=== PATIENT | male | born 2000 | race Caucasian/White ===

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

== ENCOUNTER → 2019-12-06 | Outpatient (CLI) | payer OTHER ==
[~2019-12-06] MED LIST changes: +CLEO300C2 PO; +EXCETAB33 PO; +GABA-843 PO; -IBUP200C10 PO; +IBUP200C25 PO; +LAMI25TA PO
--- NOTE | 2019-12-07 08:47 | REP ---
REASON: Trauma. FINDINGS: The joint spaces are symmetric and relatively well maintained. There is no evidence of acute fracture or destructive osseous lesion. IMPRESSION: Negative. Electronically Signed by Fer Valdovinos DO 12/07/2019 05:18 P
== END ==
LOC: M WUC 15:38
PROVIDERS: ATTEND Physician Assistant
DX: S93.601A Unspecified sprain of right foot, initial encounter (principal); X58.XXXA Exposure to other specified factors, initial encounter; Y92.89 Other specified places as the place of occurrence of the external cause

== ENCOUNTER → 2020-01-20 | Outpatient (CLI) | payer OTHER ==
--- NOTE | 2020-02-24 10:10 | REP ---
RIGHT KNEE: 5-VIEWS COMPARISON: Latest prior full series dated 03/25/13. REASON FOR EXAMINATION: Patellar tendinitis and medial collateral ligamentous sprain. FINDINGS: The compartments are symmetric and well-maintained. There is no fracture, dislocation or subluxation. There is no destructive osseous lesion. IMPRESSION: Negative exam. If tendinitis and/or ligamentous abnormality is of clinical concern, then consider follow up with MRI. [facility]
== END ==
LOC: M WUC 16:27
PROVIDERS: ATTEND Physician Assistant
DX: M76.51 Patellar tendinitis, right knee (principal); S83.411A Sprain of medial collateral ligament of right knee, initial encounter; X58.XXXA Exposure to other specified factors, initial encounter; Y92.89 Other specified places as the place of occurrence of the external cause

== ENCOUNTER 2020-03-12 20:07 | Emergency (ER) | payer OTHER ==
[~2020-03-12] VITALS: Ht 182.9 cm; Wt 77.3 kg
[~2020-03-12 20:07] MED LIST changes: -CLEO300C2 PO; -EXCETAB33 PO; -GABA-843 PO; -LAMI25TA PO
[2020-03-12 20:08] VITALS: BP 143/74
[2020-03-12] MEDS ORDERED: LAMI25TA PO ×2 (20:11→20:13)
[2020-03-12] MEDS ORDERED: GABA-843 PO (20:11)
[2020-03-12] MEDS ORDERED: IBUP-1022 PO ×2 (20:13→20:29)
[2020-03-12] MEDS ORDERED: EXCETAB33 PO (20:13)
[2020-03-12] MEDS ORDERED: CLEO300C2 PO (20:29)
[2020-03-12] MEDS ORDERED: CLINDAMYCIN 150MG CAPSULE PO ONE (20:30)
[2020-03-12] MEDS ORDERED: traMADol 50 MG TAB (BULK 4 TAB ED) PO ONE (20:30)
== END 2020-03-12 20:56 | disposition home or self-care (01) ==
LOC: M ED 20:07
DX: K04.7 Periapical abscess without sinus (principal); R68.84 Jaw pain; K08.89 Other specified disorders of teeth and supporting structures; F17.200 Nicotine dependence, unspecified, uncomplicated; Z97.2 Presence of dental prosthetic device (complete) (partial); Z79.82 Long term (current) use of aspirin; Z88.0 Allergy status to penicillin

== ENCOUNTER → 2021-02-28 | Outpatient (REF) | payer OTHER ==
[~2021-02-28] MED LIST changes: +CLEO300C2 PO; +EXCETAB33 PO; +GABA-282 PO; +LAMI25TA PO
== END ==
LOC: M WUC 15:34
PROVIDERS: ATTEND Physician Assistant
DX: R05 Cough (principal)

== ENCOUNTER 2021-03-19 16:18 | Emergency (ER) | payer OTHER ==
[~2021-03-19] VITALS: Ht 182.9 cm; Wt 70.5 kg
--- OUTSIDE RECORDS SUMMARY | 2021-03-19 16:25 | CCD | Continuity of Care Document ---
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 Phone [facility] AUTM [phone] Adrian Crockett MD AUTM [phone] [place] [employer] [facility] [phone] Problems Description No Information Available Social History Type Date Description Comments Sex Unknown ETOH Use Never used alcohol Tobacco Use Start: Unknown Patient is a current smoker, smo kes every day Tobacco Use Start: Unknown Patient Currently Vapes Smoking Status Reviewed: 02/28/21 Patient Currently Vapes Allergies, Adverse Reactions, Alerts Active Allergies Criticality Reaction | Severity Comments Date Amoxicillin Unable to assess criticality throat swell ing 10/08/2016 Influenza F-Baqshmkyqj-8-2009-(H1N1)V-Li ke Virus Vaccine / Influenza B Virus Vaccine B/[place] Antigen / Influenza Virus Vaccine, Live Attenuated, I-Jmpuv-01 (H3N2) Strain Unable to assess criticality Difficulty breathing, Difficulty swallowing severe 02/28/2021 Inactive Allergies NKDA Unable to assess criticality 10/10/2012 Medications Active Medications SIG Qnty Indications Ordering Provide r Date Lamictal 100mg Tablets Unknown Benadryl Allergy Unknown 00 Immunizations Description No Information Available Vital Signs Date Vital Result Comment 02/28/2021 11:56am BP Systolic 135 mmHg BP Diastolic 74 mmHg Heart Rate 70 /min Respiratory Rate 18 /min O2 % BldC Oximetry 99 % Body Temperature 98.0 F Weight 165.00 lb Height 72 inches 6'0" BMI (Body Mass Index) 22.4 kg/m2 Pain Level 0 01/20/2020 3:40pm BP Systolic 116 mmHg BP Diastolic 84 mmHg Heart Rate 100 /min Respiratory Rate 12 /min O2 % BldC Oximetry 98 % Body Temperature 98.4 F Weight 160.00 lb Height 72 inches 6'0" BMI (Body Mass Index) 21.7 kg/m2 Pain Level 10 Results Description No Information Available Procedures Date Code Description Status 02/28/2021 02613 Office/Outpatient Established Mo d MDM 30-39 Min Completed Medical Devices Description No Information Available Encounters Type Date Location Provider Dx Diagnosis Office Visit 02/28/2021 9:45a Main Office Mu Millard, P.A. J0 6.9 Acute upper respiratory infection, unspecified R05 Cough Z20.828 Contact w and exposure to ot h viral communicable diseases Assessments Date Code Description Provider 02/28/2021 J06.9 Acute upper respiratory infectio n, unspecified Mu Millard, P.A. 02/28/2021 R05 Cough Mu sánchez, P.A. 02/28/2021 Z20.828 Contact with and (schneider spected) exposure to other viral communicable diseases Mu Millard, P.A. Plan of Treatment No Information Available Functional Status Description No Information Available Mental Status Description No Information Available Referrals Description No Information Available
--- OUTSIDE RECORDS SUMMARY | 2021-03-19 16:25 | CCD | Continuity of Care Document ---
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
--- OUTSIDE RECORDS SUMMARY | 2021-03-19 16:25 | CCD ---
Continuity of Care Document (CCD) Created on: 03/01/2021 Michelle Villar External Reference #: [id number] : 2000 Sex: Male Author Author Michelle MILLARD Organization Unknown Address [address] [place] [address] Phone [phone] Care Team Providers Care Customer Contact Specialist Name Role Phone [facility] AUTM [phone] Adrian Crockett MD AUTM [phone] [place] [employer] [facility] [phone] Problems Description No Information Available Social History [...] assess criticality throat swell ing 10/08/2016 Influenza Q-Amyjxhxrok-4-2009-(H1N1)V-Li ke Virus Vaccine / Influenza B Virus Vaccine B/[place] Antigen / Influenza Virus Vaccine, Live Attenuated, I-Lnfdp-94 (H3N2) Strain Unable to assess criticality Difficulty [...] Index) 21.7 kg/m2 Pain Level 10 Results Test Acquired Date Facility Test Result H/L Range Note Respiratory Panel 02/28/2021 [facility] [address] [address] [place] [address] [phone] Respiratory Panel This respiratory <SEE NOTE> 1 1 This respiratory PCR panel d etects Influenza A H1, H3 and 2008 H1 viruses, Influenza B virus, Resp iratory Syncytial Virus, Human metapneumovirus, Parainfluenza virus 1, 2, 3 and 4, Adenovirus, Rhinovirus/Enterovirus, Coronavirus HKU1, NL63, OC43, 229E and SARS-CoV-2 (COVID 19), Bordetella pertussis, Bordetella parapertussis, Mycoplasma pneumoniae and Chlamydia pneumoniae. NEGATIVE by MULTIPLEXED NUCLEIC ACID PCR SARS-CoV-2 (COVID 19) NEGATIVE - SARS-CoV-2 (COVID19) Procedures Date Code Description Status 02/28/2021 09656 Office/Outpatient Established Mo d MDM 30-39 Min Completed Medical Devices Description No Information Available Encounters Type Date Location Provider Dx Diagnosis Office Visit 02/28/2021 9:45a Main Office Manish Jones J0 6.9 Acute upper respiratory infection, unspecified R05 Cough Z20.828 Contact w and exposure to ot h viral communicable diseases Assessments Date Code Description Provider 02/28/2021 J06.9 Acute upper respiratory infectio n, unspecified Mu Millard, P.A. 02/28/2021 R05 Cough Mu sánchez, P.A. 02/28/2021 Z20.828 Contact with and (schneider spected) exposure to other viral communicable diseases Manish Jones Plan of Treatment No Information Available Functional Status Description No Information Available Mental Status Description No Information Available Referrals Description No Information Available
--- OUTSIDE RECORDS SUMMARY | 2021-03-19 16:26 | CCD ---
Author Author [facility] Organization [facility] Address Unknown Phone Unavailable Care Team Providers Care Er Manager Name Role Phone Estelle Torres Unavailable Unavailable Fish, B Nile ARTHUR Unavailable Unavailable Fish, B Nile ARTHUR Unavailable Unavailable Fish, B Nile ARTHUR Unavailable Unavailable Fish, B Nile ARTHUR Unavailable Unavailable Fish, B Nile ARTHUR Unavailable Unavailable Fish, B Nile ARTHUR Unavailable Unavailable Fish, B Nile ARTHUR Unavailable Unavailable Fish, B Nile ARTHUR Unavailable Unavailable Fish, B Nile ARTHUR Unavailable Unavailable Fish, B Nile ARTHUR Unavailable Unavailable Fish, B Nile ARTHUR Unavailable Unavailable Fish, B Nile ARTHUR Unavailable Unavailable Fish, B Nile ARTHUR Unavailable Unavailable Fish, B Nile ARTHUR Unavailable Unavailable Fish, B Nlie ARTHUR Unavailable Unavailable Fish, B Nile ARTHUR Unavailable Unavailable Fish, B Nile ARTHUR Unavailable Unavailable Fish, B Nile ARTHUR Unavailable Unavailable Fish, B Nile ARTHUR Unavailable Unavailable Fish, B Nile ARTHUR Unavailable Unavailable Fish, B Nile ARTHUR Unavailable Unavailable Fish, B Nile ARTHUR Unavailable Unavailable Fish, B Nile ARTHUR Unavailable Unavailable Fish, B Nile ARTHUR Unavailable Unavailable Fish, B Nile ARTHUR Unavailable Unavailable Fish, B Nile ARTHUR Unavailable Unavailable Fish, B Nile ARTHUR Unavailable Unavailable Fish, B Nile ARTHUR Unavailable Unavailable Fish, B Nile ARTHUR Unavailable Unavailable Fish, B Nile ARTHUR Unavailable Unavailable Fish, B Nile ARTHUR Unavailable Unavailable Fish, B Nile ARTHUR Unavailable Unavailable Fish, B Nile ARTHUR Unavailable Unavailable Fish, B Nile ARTHUR Unavailable Unavailable Fish, B Nile ARTHUR Unavailable Unavailable Fish, B Nile ARTHUR Unavailable Unavailable Fish, B Nile ARTHUR Unavailable Unavailable Fish, B Nile ARTHUR Unavailable Unavailable Fish, B Nile ARTHUR Unavailable Unavailable Fish, B Nile ARTHUR Unavailable Unavailable Fish, B Nile ARTHUR Unavailable Unavailable Fish, B Nile ARTHUR Unavailable Unavailable Fish, B Nile ARTHUR Unavailable Unavailable Fish, B Nile ARTHUR Unavailable Unavailable Fish, B Nile ARTHUR Unavailable Unavailable Fish, B Nile ARTHUR Unavailable Unavailable Fish, B Nile ARTHUR Unavailable Unavailable Fish, B Nile ARTHUR Unavailable Unavailable Fish, B Nile ARTHUR Unavailable Unavailable Fish, B Nile ARTHUR Unavailable Unavailable Fish, B Nile ARTHUR Unavailable Unavailable Fish, B Nile ARTHUR Unavailable Unavailable Fish, B Nile ARTHUR Unavailable Unavailable Fish, B Nile ARTHUR Unavailable Unavailable Fish, B Nile ARTHUR Unavailable Unavailable Fish, B Nile ARTHUR Unavailable Unavailable LETTIERE, A SHEMAR PA Unavailable Unavailable LETTIERE, A SHEMAR PA Unavailable Unavailable LETTIERE, A SHEMAR PA Unavailable Unavailable LETTIERE, A SHEMAR PA Unavailable Unavailable LETTIERE, A SHEMAR PA Unavailable Unavailable LETTIERE, A SHEMAR PA Unavailable Unavailable LETTIERE, A SHEMAR PA Unavailable Unavailable LETTIERE, A SHEMAR PA Unavailable Unavailable LETTIERE, A SHEMAR PA Unavailable Unavailable LETTIERE, A SHEMAR PA Unavailable Unavailable LETTIERE, A SHEMAR PA Unavailable Unavailable LETTIERE, A SHEMAR PA Unavailable Unavailable LETTIERE, A SHEMAR PA Unavailable Unavailable LETTIERE, A SHEMAR PA Unavailable Unavailable LETTIERE, A SHEMAR PA Unavailable Unavailable LETTIERE, A SHEMAR PA Unavailable Unavailable LETTIERE, A SHEMAR PA Unavailable Unavailable LETTIERE, A SHEMAR PA Unavailable Unavailable LETTIERE, A SHEMAR PA Unavailable Unavailable LETTIERE, A SHEMAR PA Unavailable Unavailable LETTIERE, A SHEMAR PA Unavailable Unavailable LETTIERE, A SHEMAR PA Unavailable Unavailable LETTIERE, A SHEMAR PA Unavailable Unavailable LETTIERE, A SHEMAR PA Unavailable Unavailable LETTIERE, A SHEMAR PA Unavailable Unavailable LETTIERE, A SHEMAR PA Unavailable Unavailable LETTIERE, A SHEMAR PA Unavailable Unavailable LETTIERE, A SHEMAR PA Unavailable Unavailable LETTIERE, A SHEMAR PA Unavailable Unavailable LETTIERE, A SHEMAR PA Unavailable Unavailable LETTIERE, A SHEMAR PA Unavailable Unavailable Luz Cobos MD Unavailable Unavailable Luz Cobos MD Unavailable Unavailable Luz Cobos MD Unavailable Unavailable Luz Cobos MD Unavailable Unavailable Luz Cobos MD Unavailable Unavailable Luz Cobos MD Unavailable Unavailable Luz Cobos MD Unavailable Unavailable Luz Cobos MD Unavailable Unavailable VENICE, ELSA PA Unavailable Unavailable VENICE, ELSA PA Unavailable Unavailable VENICE, ELSA PA Unavailable Unavailable VENICE, ELSA PA Unavailable Unavailable VENICE, ELSA PA Unavailable Unavailable VENICE, ELSA PA Unavailable Unavailable VENICE, ELSA PA Unavailable Unavailable VENICE, ELSA PA Unavailable Unavailable VENICE, ELSA PA Unavailable Unavailable VENICE, ELSA PA Unavailable Unavailable VENICE, ELSA PA Unavailable Unavailable VENICE, ELSA PA Unavailable Unavailable VENICE, ELSA PA Unavailable Unavailable VENICE, ELSA PA Unavailable Unavailable VENICE, ELSA PA Unavailable Unavailable VENICE, ELSA PA Unavailable Unavailable VENICE, ELSA PA Unavailable Unavailable VENICE, ELSA PA Unavailable Unavailable VENICE, ELSA PA Unavailable Unavailable VENICE, ELSA PA Unavailable Unavailable VENICE, ELSA PA Unavailable Unavailable VENICE, ELSA PA Unavailable Unavailable VENICE, ELSA PA Unavailable Unavailable VENICE, ELSA PA Unavailable Unavailable VENICE, ELSA PA Unavailable Unavailable VENICE, ELSA PA Unavailable Unavailable VENICE, ELSA PA Unavailable Unavailable VENICE, ELSA PA Unavailable Unavailable VENICE, ELSA PA Unavailable Unavailable VENICE, ESLA PA Unavailable Unavailable VENICE, ELSA PA Unavailable Unavailable VENICE, ELSA PA Unavailable Unavailable VENICE, ELSA PA Unavailable Unavailable VENICE, ELSA PA Unavailable Unavailable VENICE, ELSA PA Unavailable Unavailable VENICE, ELSA PA Unavailable Unavailable Brian F Estelle HEADING AND PRIMING TOOL SETTER-BC Unavailable Unavailable Brian F Estelle HEADING AND PRIMING TOOL SETTER-BC Unavailable Unavailable Brian F Estelle HEADING AND PRIMING TOOL SETTER-BC Unavailable Unavailable Torres F Estelle HEADING AND PRIMING TOOL SETTER-BC Unavailable Unavailable Brian F Estelle HEADING AND PRIMING TOOL SETTER-BC Unavailable Unavailable Torres F Estelle HEADING AND PRIMING TOOL SETTER-BC Unavailable Unavailable Torres, F Estelle HEADING AND PRIMING TOOL SETTER-BC Unavailable Unavailable Torres, F Estelle HEADING AND PRIMING TOOL SETTER-BC Unavailable Unavailable Torres F Estelle HEADING AND PRIMING TOOL SETTER-BC Unavailable Unavailable Torres F Estelle HEADING AND PRIMING TOOL SETTER-BC Unavailable Unavailable Brian F Estelle HEADING AND PRIMING TOOL SETTER-BC Unavailable Unavailable Torres F Estelle HEADING AND PRIMING TOOL SETTER-BC Unavailable Unavailable Torres F Estelle HEADING AND PRIMING TOOL SETTER-BC Unavailable Unavailable Luis Torres HEADING AND PRIMING TOOL SETTER-BC Unavailable Unavailable Luis Torres HEADING AND PRIMING TOOL SETTER-BC Unavailable Unavailable Luis Torres HEADING AND PRIMING TOOL SETTER-BC Unavailable Unavailable Luis Torres HEADING AND PRIMING TOOL SETTER-BC Unavailable Unavailable Luis Torres HEADING AND PRIMING TOOL SETTER-BC Unavailable Unavailable Luis Torres HEADING AND PRIMING TOOL SETTER-BC Unavailable Unavailable Luis Torres HEADING AND PRIMING TOOL SETTER-BC Unavailable Unavailable Luis Torres HEADING AND PRIMING TOOL SETTER-BC Unavailable Unavailable Luis Torres HEADING AND PRIMING TOOL SETTER-BC Unavailable Unavailable Luis Torres Estelle HEADING AND PRIMING TOOL SETTER-BC Unavailable Unavailable Scordo, M Roseann PA Unavailable Unavailable Scordo, M Roseann PA Unavailable Unavailable Scordo, M Roseann PA Unavailable Unavailable Scordo, M Roseann PA Unavailable Unavailable Scordo, M Roseann PA Unavailable Unavailable Scordo, M Roseann PA Unavailable Unavailable Scordo, M Roseann PA Unavailable Unavailable Scordo, M Roseann PA Unavailable Unavailable Scordo, M Roseann PA Unavailable Unavailable Scordo, M Roseann PA Unavailable Unavailable Scordo, M Roseann PA Unavailable Unavailable Scordo, M Roseann PA Unavailable Unavailable Scordo, M Roseann PA Unavailable Unavailable Scordo, M Roseann PA Unavailable Unavailable Scordo, M Roseann PA Unavailable Unavailable Scordo, M Roseann PA Unavailable Unavailable Scordo, M Roseann PA Unavailable Unavailable Scordo, M Roseann PA Unavailable Unavailable Scordo, M Roseann PA Unavailable Unavailable Scordo, M Roseann PA Unavailable Unavailable Scordo, M Roseann PA Unavailable Unavailable Scordo, M Roseann PA Unavailable Unavailable Scordo, M Roseann PA Unavailable Unavailable Scordo, M Roseann PA Unavailable Unavailable Scordo, M Roseann PA Unavailable Unavailable Scordo, M Roseann PA Unavailable Unavailable Scordo, M Roseann PA Unavailable Unavailable Scordo, M Roseann PA Unavailable Unavailable Scordo, M Roseann PA Unavailable Unavailable Scordo, M Roseann PA Unavailable Unavailable Scordo, M Roseann PA Unavailable Unavailable Scordo, M Roseann PA Unavailable Unavailable Scordo, M Roseann PA Unavailable Unavailable Scordo, M Roseann PA Unavailable Unavailable Scordo, M Roseann PA Unavailable Unavailable Scordo, M Roseann PA Unavailable Unavailable Scordo, M Roseann PA Unavailable Unavailable Scordo, M Roseann PA Unavailable Unavailable Scordo, M Roseann PA Unavailable Unavailable Scordo, M Roseann PA Unavailable Unavailable Scordo, M Roseann PA Unavailable Unavailable Scordo, M Roseann PA Unavailable Unavailable Scordo, M Roseann PA Unavailable Unavailable Scordo, M Roseann PA Unavailable Unavailable Scordo, M Roseann PA Unavailable Unavailable Scordo, M Roseann PA Unavailable Unavailable Scordo, M Roseann PA Unavailable Unavailable Re-disclosure Warning The records that you are about to access may contain information from federally-assisted alcohol or drug abuse programs. If such information is present, then the following federally mandated warning applies: This information has been disclosed to you from records protected by federal confidentiality rules (42 CFR part 2). The federal rules prohibit you from making any further disclosure of this information unless further disclosure is expressly permitted by the written consent of the person to whom it pertains or as otherwise permitted by 42 CFR part 2. A general authorization for the release of medical or other information is NOT sufficient for this purpose. The Federal rules restrict any use of the information to criminally investigate or prosecute any alcohol or drug abuse patient.The records that you are about to access may contain highly sensitive health information, the redisclosure of which is protected by Article 27-F of the [facility] Public Health law. If you continue you may have access to information: Regarding HIV / AIDS; Provided by facilities licensed or operated by the [facility] Office of Mental Health; or Provided by the [facility] Office for People With Developmental Disabilities. If such information is present, then the following [facility] mandated warning applies: This information has been disclosed to you from confidential records which are protected by state law. State law prohibits you from making any further disclosure of this information without the specific written consent of the person to whom it pertains, or as otherwise permitted by law. Any unauthorized further disclosure in violation of state law may result in a fine or intermediate sentence or both. A general authorization for the release of medical or other information is NOT sufficient authorization for further disc losure. Family History Family Member Name Family Member Gender Family Member Status Date o f Status Description Data Source(s) Unknown Unknown Problem [facility] ([facility]) Unknown Unknown Problem [facility] ([facility]) Unknown Unknown Problem [facility] ([facility]) Unknown Unknown Problem [facility] ([facility]) Unknown Unknown Problem [facility] ([facility]) Unknown Unknown Problem [facility] ([facility]) mgm Encounters Encounter Providers Location Date Indications Data Source(s ) Outpatient Attender: ELSA Bennett Raphael Booker ry 02/28/2021 09:45:00 AM EDT [facility] ([facility]) Darius Cobos MD: [address] [place] [address], Ph. Attender: Darius Cobos MD [facility] 12/18/2020 12:00:00 AM EDT [facility]) Darius Cobos MD: [address] [place] [address], Ph. Attender: Darius Cobos MD [facility] 11/13/2020 12:00:00 AM EDT [facility]) Darius Cobos MD: [address] [place] [address], Ph. Attender: Darius Cobos MD [facility] 11/13/2020 12:00:00 AM EDT [place] ([facility]) Darius Cobos MD: [address] [place] [address], Ph. Attender: Darius Cobos MD [facility] 05/22/2020 12:00:00 AM EST [place] ([facility]) Darius Cobos MD: [address] [place] [address], Ph. Attender: Darius Cobos MD [facility] 05/22/2020 12:00:00 AM EST [place] ([facility]) Darius Cobos MD: [address], [place] [address], Ph. Attender: Darius Cobos MD [facility] 05/22/2020 12:00:00 AM EST [place] ([facility]) Roseann Green PA-C: [address], [place] [address], Ph. Attender: [facility] 05/18/2020 12:00:00 AM EST [place] ([facility]) Roseann Green PA-C: [address], [place] [address], Ph. Attender: [facility] 05/18/2020 12:00:00 AM EST [place] ([facility]) Roseann Green PA-C: [address], [facility] [place] [address], Ph. Attender: Roseann [facility] 05/18/2020 12:00:00 AM EST [place] ([facility]) Roseann Green PA-C: [address], [facility] [place] [address], Ph. Attender: Roseann [facility] 05/18/2020 12:00:00 AM EST [place] ([facility]) Outpatient Attender: Nile Torres MD Physical Therapy 05/05/2020 0 2:15:00 PM EST [facility] ([facility] ) Darius Cobos MD: [address], [place] [address], Ph. Attender: Darius Cobos MD [facility] 05/04/2020 12:00:00 AM EST [place] ([facility]) Darius Cobos MD: [address], [facility] [place] [address], Ph. Attender: Darius Cobos MD [facility] 05/04/2020 12:00:00 AM EST [place] ([facility]) Darius Cobos MD: [address], [facility] [place] [address], Ph. Attender: Darius Cobos MD [facility] 05/04/2020 12:00:00 AM EST [place] ([facility]) Darius Cobos MD: [address], [facility] [place] [address], Ph. Attender: Darius Cobos MD [facility] 05/04/2020 12:00:00 AM EST [place] ([facility]) Darius Cobos MD: [address], [place] [address], Ph. Attender: Darius Cobos MD [facility] Medical 05/04/2020 12:00:00 AM EST [place] ([facility]) Darius Cobos MD: [address], [place] [address], Ph. Attender: Darius Cobos MD [facility] 04/17/2020 12:00:00 AM EST [place] ([facility]) Darius Cobos MD: [address], [facility] [place] [address], Ph. Attender: Darius Cobos MD [facility] Medical 04/17/2020 12:00:00 AM EST [place] ([facility]) Darius Cobos MD: [address], [place] [address], Ph. Attender: Darisu Cobos MD [facility] 04/17/2020 12:00:00 AM EST [place] ([facility]) Darius Cobos MD: [address], [place] [address], Ph. Attender: Darius Cobos MD [facility] 04/17/2020 12:00:00 AM EST [place] ([facility]) Darius Cobos MD: [address], [place] [address], Ph. Attender: Darius Cobos MD [facility] 04/17/2020 12:00:00 AM EST [place] ([facility]) Darius Cobos MD: [address], [place] [address], Ph. Attender: Darius Cobos MD [facility] 04/17/2020 12:00:00 AM EST [place] ([facility]) Outpatient Attender: Nile Torres MD Physical Therapy 03/24/2020 0 1:00:00 PM EDT [place] ([facility]) Outpatient Attender: Estelle GUTIERRES-PRESLEY FP 03/16/2020 10: 54:00 AM EDT [facility] Outpatient Attender: Estelle STEINBERG FP 03/16/2020 10: 54:00 AM EDT [facility] Outpatient Attender: Estelle STEINBERG FP 03/16/2020 10: 54:00 AM EDT [facility] Outpatient Attender: NENITA GUTIERRES FP 03/14/2020 11:33:07 AM EDT [facility] Outpatient Attender: Estelle GUTIERRES-BC FP 03/13/2020 03: 00:05 PM EDT [facility] Outpatient Attender: Estelle GUTIERRES-BC 03/06/2020 01: 09:01 PM EDT [facility] Outpatient Attender: Estelle OSBORNEBC 02/17/2020 08: 34:20 AM EDT [facility] Outpatient Attender: NENITA GUTIERRES 02/14/2020 07:59:00 AM EDT [facility] Outpatient Attender: Nile Torres MD Physical Therapy 02/11/2020 0 2:30:00 PM EDT [facility] ([facility]) OFFICE OUTPATIENT NEW 30 MINUTES Attender: Nile Torres MD Physic al Therapy 01/27/2020 12:45:00 PM EDT [facility] ([facility]) Outpatient Attender: SHEMAR arroyo 01/20/2020 03:50:00 PM EDT [facility] ([facility]) Medications Medication Brand Name Start Date Product Form Dose Route Admi nistrative Instructions Pharmacy Instructions Status Indications Reaction Description Data Source(s) 100 mg 12/19/2020 12:00:00 AM EDT tablet 30 TAKE ONE TABLET BY MOUTH AT BEDTIME TAKE ONE TABLET BY MOUTH AT BEDTIME SOLD: 01/20/2021 [facility] 100 mg 12/19/2020 12:00:00 AM EDT tablet 30 TAKE ONE TABLET BY MOUTH AT BEDTIME TAKE ONE TABLET BY MOUTH AT BEDTIME SOLD: 02/20/2021 [facility] 25 mg 12/19/2020 12:00:00 AM EDT tablet 60 TAKE ONE TABLET BY MOUTH TWICE A DAY TAKE ONE TABLET BY MOUTH TWICE A DAY SOLD: 12/19/2020 [facility] 100 mg 12/19/2020 12:00:00 AM EDT tablet 30 TAKE ONE TABLET BY MOUTH AT BEDTIME TAKE ONE TABLET BY MOUTH AT BEDTIME SOLD: 12/19/2020 [facility] 25 mg 11/16/2020 12:00:00 AM EDT tablet 60 TAKE ONE TABLET BY MOUTH TWICE A DAY TAKE ONE TABLET BY MOUTH TWICE A DAY SOLD: 11/20/2020 [facility] 25 mg 10/23/2020 12:00:00 AM EDT tablet 30 TAKE ONE TABLET BY MOUTH AT BEDTIME TAKE ONE TABLET BY MOUTH AT BEDTIME SOLD: 11/13/2020 [facility] 25 mg 10/23/2020 12:00:00 AM EDT tablet 30 TAKE ONE TABLET BY MOUTH AT BEDTIME TAKE ONE TABLET BY MOUTH AT BEDTIME SOLD: 12/19/2020 [facility] 100 mg 10/13/2020 12:00:00 AM EDT tablet 30 TAKE ONE TABLET BY MOUTH AT BEDTIME TAKE ONE TABLET BY MOUTH AT BEDTIME SOLD: 10/13/2020 [facility] 100 mg 10/13/2020 12:00:00 AM EDT tablet 30 TAKE ONE TABLET BY MOUTH AT BEDTIME TAKE ONE TABLET BY MOUTH AT BEDTIME SOLD: 11/14/2020 [facility] 25 mg 06/22/2020 12:00:00 AM EST tablet 30 TAKE ONE TABLET BY MOUTH AT BEDTIME TAKE ONE TABLET BY MOUTH AT BEDTIME SOLD: 06/26/2020 [facility] 25 mg 06/22/2020 12:00:00 AM EST tablet 30 TAKE ONE TABLET BY MOUTH AT BEDTIME TAKE ONE TABLET BY MOUTH AT BEDTIME SOLD: 09/01/2020 [facility] 25 mg 06/22/2020 12:00:00 AM EST tablet 30 TAKE ONE TABLET BY MOUTH AT BEDTIME TAKE ONE TABLET BY MOUTH AT BEDTIME SOLD: 10/13/2020 [facility] 25 mg 06/22/2020 12:00:00 AM EST tablet 30 TAKE ONE TABLET BY MOUTH AT BEDTIME TAKE ONE TABLET BY MOUTH AT BEDTIME SOLD: 08/01/2020 [facility] 25 mg 05/24/2020 12:00:00 AM EST tablet 30 TAKE ONE TABLET BY MOUTH DAILY AT BEDTIME TAKE ONE TABLET BY MOUTH DAILY AT BEDTIME SOLD: 05/25/2020 [facility] 100 mg 05/23/2020 12:00:00 AM EST tablet 30 TAKE ONE TABLET BY MOUTH DAILY AT BEDTIME TAKE ONE TABLET BY MOUTH DAILY AT BEDTIME SOLD: 08/01/2020 [facility] 100 mg 05/23/2020 12:00:00 AM EST tablet 30 TAKE ONE TABLET BY MOUTH DAILY AT BEDTIME TAKE ONE TABLET BY MOUTH DAILY AT BEDTIME SOLD: 06/26/2020 [facility] 100 mg 05/23/2020 12:00:00 AM EST tablet 30 TAKE ONE TABLET BY MOUTH DAILY AT BEDTIME TAKE ONE TABLET BY MOUTH DAILY AT BEDTIME SOLD: 09/01/2020 [facility] 100 mg 05/23/2020 12:00:00 AM EST tablet 30 TAKE ONE TABLET BY MOUTH DAILY AT BEDTIME TAKE ONE TABLET BY MOUTH DAILY AT BEDTIME SOLD: 05/23/2020 [facility] 0.5 mg (11)- 1 mg (42) 05/19/2020 12:00:00 AM EST tablets,do se pack 53 TAKE BY MOUTH DIRECTED TAKE BY MOUTH DIRECTED SOLD: 05/19/2020 [facility] 600 mg 04/21/2020 12:00:00 AM EST tablet 90 TAKE ONE TABLET BY MOUTH THREE TIMES A DAY TAKE ONE TABLET BY MOUTH THREE TIMES A DAY SOLD: 04/22/2020 [facility] 25 mg 04/13/2020 12:00:00 AM EST tablet 60 TAKE ONE TABLET BY MOUTH TWO TIMES A DAY TAKE ONE TABLET BY MOUTH TWO TIMES A DAY SOLD: 04/18/2020 [facility] Clindamycin 300 MG Oral Capsule CLINDAMYCIN HCL 03/13/2020 12:00 :00 AM EDT capsule 40 TAKE ONE CAPSULE BY MOUTH FOUR T IMES A DAY TAKE ONE CAPSULE BY MOUTH FOUR TIMES A DAY SOLD: 03/13/2020 [facility] 600 mg 03/13/2020 12:00:00 AM EDT tablet 30 TAKE ONE TABLET BY MOUTH EVERY 6 HOURS NEEDED FOR PAIN TAKE ONE TABLET BY MOUTH EVERY 6 HOURS A S NEEDED FOR PAIN SOLD: 03/13/2020 [facility] 25 mg 03/09/2020 12:00:00 AM EDT tablet 60 TAKE ONE TABLET BY MOUTH TWICE A DAY TAKE ONE TABLET BY MOUTH TWICE A DAY SOLD: 03/09/2020 [facility] 600 mg 02/17/2020 12:00:00 AM EDT tablet 60 TAKE ONE TABLET BY MOUTH TWICE A DAY TAKE ONE TABLET BY MOUTH TWICE A DAY SOLD: 03/24/2020 [facility] 600 mg 02/17/2020 12:00:00 AM EDT tablet 60 TAKE ONE TABLET BY MOUTH TWICE A DAY TAKE ONE TABLET BY MOUTH TWICE A DAY SOLD: 02/20/2020 [facility] Ibuprofen 800 MG Oral Tablet Ibuprofen 01/12/2020 12:00:00 AM EDT ORAL completed [facility] ([facility]) chlorhexidine gluconate 1.2 MG/ML Mouthwash Chlorhexidine Gl uconate 01/12/2020 12:00:00 AM EDT completed [facility] ([facility]) Clindamycin 300 MG Oral Capsule Clindamycin HCL 01/12/2020 12:00:00 A M EDT completed [facility] ([facility]) 25 mg 12/28/2019 12:00:00 AM EDT tablet 60 TAKE ONE TABLET BY MOUTH TWICE A DAY TAKE ONE TABLET BY MOUTH TWICE A DAY SOLD: 02/01/2020 [facility] Ketotifen 0.25 MG/ML Ophthalmic Solution ketotifen 0.0 25 % (0.035 %) eye drops ketotifen 0.025 % (0.035 %) eye drops completed ketotifen 0.25 MG/ML Ophthalmic Solution [place] ([facility]) [place] Carbonate 300 MG Oral Capsule li thium carbonate 300 mg capsule TAKE 1 CAPSULE BY MOUTH TWO TIMES A DAY lithium carbonate 300 mg capsule TAKE 1 CAPSULE BY MOUTH TWO TIMES A DAY completed lithium carbonate 300 MG Oral Capsule [place] ([facility]) Risperidone 2 MG Oral Tablet risperidone 2 mg tablet TAKE ONE TABLET BY MOUTH EVERY DAY risperidone 2 mg tablet TAKE ONE TABLET BY MOUTH EVERY DAY completed risperidone 2 MG Oral Tablet [place] ([facility]) Doxycycline Monohydrate 100 MG Oral Caps ule doxycycline monohydrate 100 mg capsule doxycycline monohydrate 100 mg capsule completed doxycycline monohydrate 100 MG Oral Capsule [facility] ([facility]) [place] Carbonate 300 MG Oral Capsule li thium carbonate 300 mg capsule TAKE 1 CAPSULE BY MOUTH TWO TIMES A DAY lithium carbonate 300 mg capsule TAKE 1 CAPSULE BY MOUTH TWO TIMES A DAY completed lithium carbonate 300 MG Oral Capsule [facility] ([facility]) Doxycycline Monohydrate 100 MG Oral Caps ule doxycycline monohydrate 100 mg capsule doxycycline monohydrate 100 mg capsule completed doxycycline monohydrate 100 MG Oral Capsule [facility] ([facility]) chlorhexidine gluconate 1.2 MG/ML Mouthw [place] chlorhexidine gluconate 0.12 % mouthwash chlorhexidine gluconate 0.12 % mouthwash completed chlorhexidine gluconate 1.2 MG/ML Mouthwash [facility] ([facility]) Doxycycline Monohydrate 100 MG Oral Caps ule doxycycline monohydrate 100 mg capsule doxycycline monohydrate 100 mg capsule completed doxycycline monohydrate 100 MG Oral Capsule [facility] ([facility]) chlorhexidine gluconate 1.2 MG/ML Mouthw [place] chlorhexidine gluconate 0.12 % mouthwash chlorhexidine gluconate 0.12 % mouthwash completed chlorhexidine gluconate 1.2 MG/ML Mouthwash [facility]) Risperidone 2 MG Oral Tablet risperidone 2 mg tablet TAKE ONE TABLET BY MOUTH EVERY DAY risperidone 2 mg tablet TAKE ONE TABLET BY MOUTH EVERY DAY completed risperidone 2 MG Oral Tablet [facility]) fluticasone propionate 50 mcg/actuation nasal spray,suspension [id number] completed fluticasone propionate 0.05 MG/ACTUAT Metered Dose Nasal [place] [facility]) chlorhexidine gluconate 1.2 MG/ML Mouthw [place] chlorhexidine gluconate 0.12 % mouthwash chlorhexidine gluconate 0.12 % mouthwash completed chlorhexidine gluconate 1.2 MG/ML Mouthwash [facility]) Risperidone 0.25 MG Oral Tablet risperid one 0.25 mg tablet TAKE 1 TABLET BY MOUTH DAILY WITH 2MG TABLET FOR TOTAL DAILY DOSE OF 2.25MG risperidone 0.25 mg tablet TAKE 1 TABLET BY MOUTH DAILY WITH 2MG TABLET FOR TOTAL DAILY DOSE OF 2.25MG completed risperidone 0.2 5 MG Oral Tablet [facility]) fluticasone propionate 50 mcg/actuation nasal spray,suspension [id number] completed fluticasone propionate 0.05 MG/ACTUAT Metered Dose Nasal [place] [facility]) Risperidone 2 MG Oral Tablet risperidone 2 mg tablet TAKE ONE TABLET BY MOUTH EVERY DAY risperidone 2 mg tablet TAKE ONE TABLET BY MOUTH EVERY DAY completed risperidone 2 MG Oral Tablet [facility]) Hydroxyzine Hydrochloride 25 MG Oral Tab let hydroxyzine HCl 25 mg tablet TAKE ONE TABLET BY MOUTH EVERY DAY hydroxyzine HCl 25 mg tablet TAKE ONE TA BLET BY MOUTH EVERY DAY completed hydroxyzine hydrochloride 25 MG Oral Tablet [facility]) quetiapine 25 MG Oral Tablet quetiapine 25 mg tablet quetiapine 25 mg tablet completed quetiapine 25 MG Oral Tablet [facility]) quetiapine 50 MG Oral Tablet quetiapine 50 mg tablet quetiapine 50 mg tablet completed quetiapine 50 MG Oral Tablet [facility]) Hydroxyzine Hydrochloride 25 MG Oral Tab let hydroxyzine HCl 25 mg tablet TAKE ONE TABLET BY MOUTH EVERY DAY hydroxyzine HCl 25 mg tablet TAKE ONE TA BLET BY MOUTH EVERY DAY completed hydroxyzine hydrochloride 25 MG Oral Tablet [facility] ([facility]) Risperidone 2 MG Oral Tablet risperidone 2 mg tablet TAKE ONE TABLET BY MOUTH EVERY DAY risperidone 2 mg tablet TAKE ONE TABLET BY MOUTH EVERY DAY completed risperidone 2 MG Oral Tablet [place] ([facility]) Clindamycin 300 MG Oral Capsule clindamycin HCl 300 mg capsule clindamycin HCl 300 mg capsule completed clindam ycin 300 MG Oral Capsule [place] ([facility]) Risperidone 2 MG Oral Tablet risperidone 2 mg tablet TAKE ONE TABLET BY MOUTH EVERY DAY risperidone 2 mg tablet TAKE ONE TABLET BY MOUTH EVERY DAY completed risperidone 2 MG Oral Tablet [place] ([facility]) Hydroxyzine Hydrochloride 25 MG Oral Tab let hydroxyzine HCl 25 mg tablet TAKE ONE TABLET BY MOUTH EVERY DAY hydroxyzine HCl 25 mg tablet TAKE ONE TA BLET BY MOUTH EVERY DAY completed hydroxyzine hydrochloride 25 MG Oral Tablet [place] ([facility]) Ketotifen 0.25 MG/ML Ophthalmic Solution ketotifen 0.0 25 % (0.035 %) eye drops ketotifen 0.025 % (0.035 %) eye drops completed ketotifen 0.25 MG/ML Ophthalmic Solution [place] ([facility]) cetirizine hydrochloride 10 MG Oral Tabl et cetirizine 10 mg tablet TAKE 1 TABLET BY MOUTH EVERY NIGHT cetirizine 10 mg tablet TAKE 1 TABLET BY MOUTH EVERY N IGHT completed cetirizine hyd rochloride 10 MG Oral Tablet [place] ([facility]) Ibuprofen 800 MG Oral Tablet ibuprofen 8 00 mg tablet TAKE ONE TABLET BY MOUTH THREE TIMES A DAY NEEDED FOR PAIN ibuprofen 800 mg tablet TAKE ONE TABLET BY MOUTH THREE TIMES A DAY NEEDED FOR PAIN completed ibuprofen 800 MG Oral Tablet [place] ([facility]) Risperidone 2 MG Oral Tablet risperidone 2 mg tablet TAKE ONE TABLET BY MOUTH EVERY DAY risperidone 2 mg tablet TAKE ONE TABLET BY MOUTH EVERY DAY completed risperidone 2 MG Oral Tablet [place] ([facility]) [place] Carbonate 300 MG Oral Capsule li thium carbonate 300 mg capsule TAKE 1 CAPSULE BY MOUTH TWO TIMES A DAY lithium carbonate 300 mg capsule TAKE 1 CAPSULE BY MOUTH TWO TIMES A DAY completed lithium carbonate 300 MG Oral Capsule [facility]) fluticasone propionate 50 mcg/actuation nasal spray,suspension [id number] completed fluticasone propionate 0.05 MG/ACTUAT Metered Dose Nasal [place] ([facility]) Risperidone 0.25 MG Oral Tablet risperid one 0.25 mg tablet TAKE 1 TABLET BY MOUTH DAILY WITH 2MG TABLET FOR TOTAL DAILY DOSE OF 2.25MG risperidone 0.25 mg tablet TAKE 1 TABLET BY MOUTH DAILY WITH 2MG TABLET FOR TOTAL DAILY DOSE OF 2.25MG completed risperidone 0.2 5 MG Oral Tablet [place] ([facility]) Hydroxyzine Hydrochloride 25 MG Oral Tab let hydroxyzine HCl 25 mg tablet TAKE ONE TABLET BY MOUTH EVERY DAY hydroxyzine HCl 25 mg tablet TAKE ONE TA BLET BY MOUTH EVERY DAY completed hydroxyzine hydrochloride 25 MG Oral Tablet [place] ([facility]) Prednisone 20 MG Oral Tablet prednisone 20 mg tablet TAKE TWO TABLETS BY MOUTH EVERY DAY ONCE DAILY FOR 4 DAYS prednisone 20 mg tablet TAKE TWO TABLETS BY MOUTH EVERY DAY ONCE DAILY FOR 4 DAYS completed prednisone 20 MG Oral Tablet [place] ([facility]) Ketotifen 0.25 MG/ML Ophthalmic Solution ketotifen 0.0 25 % (0.035 %) eye drops ketotifen 0.025 % (0.035 %) eye drops completed ketotifen 0.25 MG/ML Ophthalmic Solution [place] ([facility]) cetirizine hydrochloride 10 MG Oral Tabl et cetirizine 10 mg tablet TAKE 1 TABLET BY MOUTH EVERY NIGHT cetirizine 10 mg tablet TAKE 1 TABLET BY MOUTH EVERY N IGHT completed cetirizine hyd rochloride 10 MG Oral Tablet [place] ([facility]) [place] Carbonate 300 MG Oral Capsule li thium carbonate 300 mg capsule TAKE 1 CAPSULE BY MOUTH TWO TIMES A DAY lithium carbonate 300 mg capsule TAKE 1 CAPSULE BY MOUTH TWO TIMES A DAY completed lithium carbonate 300 MG Oral Capsule [place] ([facility]) Risperidone 0.25 MG Oral Tablet risperid one 0.25 mg tablet TAKE 1 TABLET BY MOUTH DAILY WITH 2MG TABLET FOR TOTAL DAILY DOSE OF 2.25MG risperidone 0.25 mg tablet TAKE 1 TABLET BY MOUTH DAILY WITH 2MG TABLET FOR TOTAL DAILY DOSE OF 2.25MG completed risperidone 0.2 5 MG Oral Tablet [place] ([facility]) Doxycycline Monohydrate 100 MG Oral Caps ule doxycycline monohydrate 100 mg capsule doxycycline monohydrate 100 mg capsule completed doxycycline monohydrate 100 MG Oral Capsule [place] ([facility]) Ibuprofen 800 MG Oral Tablet ibuprofen 8 00 mg tablet TAKE ONE TABLET BY MOUTH THREE TIMES A DAY NEEDED FOR PAIN ibuprofen 800 mg tablet TAKE ONE TABLET BY MOUTH THREE TIMES A DAY NEEDED FOR PAIN completed ibuprofen 800 MG Oral Tablet [place] ([facility]) Clindamycin 300 MG Oral Capsule clindamycin HCl 300 mg capsule clindamycin HCl 300 mg capsule completed clindam ycin 300 MG Oral Capsule [place] ([facility]) quetiapine 50 MG Oral Tablet quetiapine 50 mg tablet quetiapine 50 mg tablet completed quetiapine 50 MG Oral Tablet [place] ([facility]) Ketotifen 0.25 MG/ML Ophthalmic Solution ketotifen 0.0 25 % (0.035 %) eye drops ketotifen 0.025 % (0.035 %) eye drops completed ketotifen 0.25 MG/ML Ophthalmic Solution [place] ([facility]) cetirizine hydrochloride 10 MG Oral Tabl et cetirizine 10 mg tablet TAKE 1 TABLET BY MOUTH EVERY NIGHT cetirizine 10 mg tablet TAKE 1 TABLET BY MOUTH EVERY N IGHT completed cetirizine hyd rochloride 10 MG Oral Tablet [place] ([facility]) Prednisone 20 MG Oral Tablet prednisone 20 mg tablet TAKE TWO TABLETS BY MOUTH EVERY DAY ONCE DAILY FOR 4 DAYS prednisone 20 mg tablet TAKE TWO TABLETS BY MOUTH EVERY DAY ONCE DAILY FOR 4 DAYS completed prednisone 20 MG Oral Tablet [place] ([facility]) Ketotifen 0.25 MG/ML Ophthalmic Solution ketotifen 0.0 25 % (0.035 %) eye drops ketotifen 0.025 % (0.035 %) eye drops completed ketotifen 0.25 MG/ML Ophthalmic Solution [place] ([facility]) Risperidone 0.25 MG Oral Tablet risperid one 0.25 mg tablet TAKE 1 TABLET BY MOUTH DAILY WITH 2MG TABLET FOR TOTAL DAILY DOSE OF 2.25MG risperidone 0.25 mg tablet TAKE 1 TABLET BY MOUTH DAILY WITH 2MG TABLET FOR TOTAL DAILY DOSE OF 2.25MG completed risperidone 0.2 5 MG Oral Tablet [facility]) Ibuprofen 800 MG Oral Tablet ibuprofen 8 00 mg tablet TAKE ONE TABLET BY MOUTH THREE TIMES A DAY NEEDED FOR PAIN ibuprofen 800 mg tablet TAKE ONE TABLET BY MOUTH THREE TIMES A DAY NEEDED FOR PAIN completed ibuprofen 800 MG Oral Tablet [facility] ([facility]) Ibuprofen 800 MG Oral Tablet ibuprofen 8 00 mg tablet TAKE ONE TABLET BY MOUTH THREE TIMES A DAY NEEDED FOR PAIN ibuprofen 800 mg tablet TAKE ONE TABLET BY MOUTH THREE TIMES A DAY NEEDED FOR PAIN completed ibuprofen 800 MG Oral Tablet [facility] ([facility]) Risperidone 0.25 MG Oral Tablet risperid one 0.25 mg tablet TAKE 1 TABLET BY MOUTH DAILY WITH 2MG TABLET FOR TOTAL DAILY DOSE OF 2.25MG risperidone 0.25 mg tablet TAKE 1 TABLET BY MOUTH DAILY WITH 2MG TABLET FOR TOTAL DAILY DOSE OF 2.25MG completed risperidone 0.2 5 MG Oral Tablet [place] ([facility]) quetiapine 50 MG Oral Tablet quetiapine 50 mg tablet quetiapine 50 mg tablet completed quetiapine 50 MG Oral Tablet [place] ([facility]) Prednisone 20 MG Oral Tablet prednisone 20 mg tablet TAKE TWO TABLETS BY MOUTH EVERY DAY ONCE DAILY FOR 4 DAYS prednisone 20 mg tablet TAKE TWO TABLETS BY MOUTH EVERY DAY ONCE DAILY FOR 4 DAYS completed prednisone 20 MG Oral Tablet [facility] ([facility]) Prednisone 20 MG Oral Tablet prednisone 20 mg tablet TAKE TWO TABLETS BY MOUTH EVERY DAY ONCE DAILY FOR 4 DAYS prednisone 20 mg tablet TAKE TWO TABLETS BY MOUTH EVERY DAY ONCE DAILY FOR 4 DAYS completed prednisone 20 MG Oral Tablet [facility] ([facility]) Doxycycline Monohydrate 100 MG Oral Caps ule doxycycline monohydrate 100 mg capsule doxycycline monohydrate 100 mg capsule completed doxycycline monohydrate 100 MG Oral Capsule [place] ([facility]) Ibuprofen 800 MG Oral Tablet ibuprofen 8 00 mg tablet TAKE ONE TABLET BY MOUTH THREE TIMES A DAY NEEDED FOR PAIN ibuprofen 800 mg tablet TAKE ONE TABLET BY MOUTH THREE TIMES A DAY NEEDED FOR PAIN completed ibuprofen 800 MG Oral Tablet [facility] ([facility]) chlorhexidine gluconate 1.2 MG/ML Mouthw [place] chlorhexidine gluconate 0.12 % mouthwash chlorhexidine gluconate 0.12 % mouthwash completed chlorhexidine gluconate 1.2 MG/ML Mouthwash [place] ([facility]) fluticasone propionate 50 mcg/actuation nasal spray,suspension [id number] completed fluticasone propionate 0.05 MG/ACTUAT Metered Dose Nasal [place] ([facility]) Doxycycline Monohydrate 100 MG Oral Caps ule doxycycline monohydrate 100 mg capsule doxycycline monohydrate 100 mg capsule completed doxycycline monohydrate 100 MG Oral Capsule [place] ([facility]) Ibuprofen 800 MG Oral Tablet ibuprofen 8 00 mg tablet TAKE ONE TABLET BY MOUTH THREE TIMES A DAY NEEDED FOR PAIN ibuprofen 800 mg tablet TAKE ONE TABLET BY MOUTH THREE TIMES A DAY NEEDED FOR PAIN completed ibuprofen 800 MG Oral Tablet [place] ([facility]) cetirizine hydrochloride 10 MG Oral Tabl et cetirizine 10 mg tablet TAKE 1 TABLET BY MOUTH EVERY NIGHT cetirizine 10 mg tablet TAKE 1 TABLET BY MOUTH EVERY N IGHT completed cetirizine hyd rochloride 10 MG Oral Tablet [place] ([facility]) Ketotifen 0.25 MG/ML Ophthalmic Solution ketotifen 0.0 25 % (0.035 %) eye drops ketotifen 0.025 % (0.035 %) eye drops completed ketotifen 0.25 MG/ML Ophthalmic Solution [place] ([facility]) fluticasone propionate 50 mcg/actuation nasal spray,suspension [id number] completed fluticasone propionate 0.05 MG/ACTUAT Metered Dose Nasal [place] ([facility]) cetirizine hydrochloride 10 MG Oral Tabl et cetirizine 10 mg tablet TAKE 1 TABLET BY MOUTH EVERY NIGHT cetirizine 10 mg tablet TAKE 1 TABLET BY MOUTH EVERY N IGHT completed cetirizine hyd rochloride 10 MG Oral Tablet [place] ([facility]) fluticasone propionate 50 mcg/actuation nasal spray,suspension [id number] completed fluticasone propionate 0.05 MG/ACTUAT Metered Dose Nasal [place] ([facility]) chlorhexidine gluconate 1.2 MG/ML Mouthw [place] chlorhexidine gluconate 0.12 % mouthwash chlorhexidine gluconate 0.12 % mouthwash completed chlorhexidine gluconate 1.2 MG/ML Mouthwash [place] ([facility]) Hydroxyzine Hydrochloride 25 MG Oral Tab let hydroxyzine HCl 25 mg tablet TAKE ONE TABLET BY MOUTH EVERY DAY hydroxyzine HCl 25 mg tablet TAKE ONE TA BLET BY MOUTH EVERY DAY completed hydroxyzine hydrochloride 25 MG Oral Tablet [place] ([facility]) cetirizine hydrochloride 10 MG Oral Tabl et cetirizine 10 mg tablet TAKE 1 TABLET BY MOUTH EVERY NIGHT cetirizine 10 mg tablet TAKE 1 TABLET BY MOUTH EVERY N IGHT completed cetirizine hyd rochloride 10 MG Oral Tablet [facility] ([facility]) Hydroxyzine Hydrochloride 25 MG Oral Tab let hydroxyzine HCl 25 mg tablet TAKE ONE TABLET BY MOUTH EVERY DAY hydroxyzine HCl 25 mg tablet TAKE ONE TA BLET BY MOUTH EVERY DAY completed hydroxyzine hydrochloride 25 MG Oral Tablet [place] ([facility]) Risperidone 0.25 MG Oral Tablet risperid one 0.25 mg tablet TAKE 1 TABLET BY MOUTH DAILY WITH 2MG TABLET FOR TOTAL DAILY DOSE OF 2.25MG risperidone 0.25 mg tablet TAKE 1 TABLET BY MOUTH DAILY WITH 2MG TABLET FOR TOTAL DAILY DOSE OF 2.25MG completed risperidone 0.2 5 MG Oral Tablet [place] ([facility]) quetiapine 50 MG Oral Tablet quetiapine 50 mg tablet quetiapine 50 mg tablet completed quetiapine 50 MG Oral Tablet [place] ([facility]) Prednisone 20 MG Oral Tablet prednisone 20 mg tablet TAKE TWO TABLETS BY MOUTH EVERY DAY ONCE DAILY FOR 4 DAYS prednisone 20 mg tablet TAKE TWO TABLETS BY MOUTH EVERY DAY ONCE DAILY FOR 4 DAYS completed prednisone 20 MG Oral Tablet [place] ([facility]) chlorhexidine gluconate 1.2 MG/ML Mouthw [place] chlorhexidine gluconate 0.12 % mouthwash chlorhexidine gluconate 0.12 % mouthwash completed chlorhexidine gluconate 1.2 MG/ML Mouthwash [place] ([facility]) [place] Carbonate 300 MG Oral Capsule li thium carbonate 300 mg capsule TAKE 1 CAPSULE BY MOUTH TWO TIMES A DAY lithium carbonate 300 mg capsule TAKE 1 CAPSULE BY MOUTH TWO TIMES A DAY completed lithium carbonate 300 MG Oral Capsule [place] ([facility]) [place] Carbonate 300 MG Oral Capsule li thium carbonate 300 mg capsule TAKE 1 CAPSULE BY MOUTH TWO TIMES A DAY lithium carbonate 300 mg capsule TAKE 1 CAPSULE BY MOUTH TWO TIMES A DAY completed lithium carbonate 300 MG Oral Capsule [place] ([facility]) quetiapine 50 MG Oral Tablet quetiapine 50 mg tablet quetiapine 50 mg tablet completed quetiapine 50 MG Oral Tablet [place] ([facility]) Prednisone 20 MG Oral Tablet prednisone 20 mg tablet TAKE TWO TABLETS BY MOUTH EVERY DAY ONCE DAILY FOR 4 DAYS prednisone 20 mg tablet TAKE TWO TABLETS BY MOUTH EVERY DAY ONCE DAILY FOR 4 DAYS completed prednisone 20 MG Oral Tablet [place] ([facility]) quetiapine 50 MG Oral Tablet quetiapine 50 mg tablet quetiapine 50 mg tablet completed quetiapine 50 MG Oral Tablet [place] ([facility]) Insurance Providers Payer name Policy type / Coverage type Policy ID Covered republican ID Covered republican's relationship to spivey Policy Spivey Plan Information [employer] Commercial [id number] Self [id number] [employer] Commercial [id number] Self [id number] [employer] Commercial [id number] Self BS/W/Id#Prefix/W ALL #'S Commercial [id number] Self [employer] Commercial [id number] Self [id number] [place] ([place]) Commercial [id number] Self [id number] Medicaid Dental S [id number] S [id number] [facility] Health Maintenance Organization (O) [id number] Self [id number] [facility] Health Maintenance Organization (O) [id number] Self [id number] [facility] Health Maintenance Organization (O) [id number] Self [id number] [facility] Health Maintenance Organization (O) [id number] Self Medicaid Dental O [id number] S [id number] Managed Care - Community Plan [facility] P [id number] S [id number] [place]/Community([facility]) Commercial [id number] Self [id number] Medicaid S [id number] S [id number] Managed Care - [facility] Community Plan P [id number] S [id number] Managed Care [facility] P [id number] S [id number] Medicaid S [id number] S [id number] Managed Care - [facility] Community Plan P [id number] S [id number] UN COMMUNITY PLAN MCDO [id number] SP [id number] [facility] O [id number] S [id number] Medicaid S [id number] S [id number] Managed Care - [facility] Community Plan P [id number] S [id number] Self Pay P [id number] S [id number] Managed Care [facility] P [id number] S [id number] Self Pay P UNAVAILABLE S UNAVAILA BLE Managed Care - Community Plan [facility] P [id number] S [id number] MEDICAID [id number] MEDICAID [id number] SP [id number] MEDICAID M [id number] S [id number] [facility]) Medicaid [id number] Self [id number] SELF PAY ONLY [id number] SP [id number] Managed Care [facility] S [id number] S [id number] BLUE [employer] [place] PLAN [id number] SP [id number] [employer] BCBS P UNAVAILABLE [id number] S UNAV AILABLE HMO BLUE [id number] SP [id number] UN COMMUNITY PLAN MCDO [id number] SP [id number] Problems, Conditions, and Diagnoses Code Display Name Description Problem Type Effective Dates Data Source(s) [id number] Disorder of upper respiratory system Dis order of Upper Respiratory System Problem 02/24/2019 12:00:00 AM EDT - 05/18/2020 12:00:00 AM EST [facility] ([facility]) [id number] Disorder of upper respiratory system Dis order of Upper Respiratory System Problem 02/24/2019 12:00:00 AM EDT - 05/18/2020 12:00:00 AM EST [place] ([facility]) [id number] Disorder of upper respiratory system Dis order of Upper Respiratory System Problem 02/24/2019 12:00:00 AM EDT - 05/18/2020 12:00:00 AM EST [place] ([facility]) [id number] Disorder of upper respiratory system Dis order of Upper Respiratory System Problem 02/24/2019 12:00:00 AM EDT - 05/18/2020 12:00:00 AM EST [place] ([facility]) [id number] Chest pain Chest Pain Problem 11/13/2018 12:0 0:00 AM EDT - 05/18/2020 12:00:00 AM EST [facility] ([facility]) [id number] Chest pain Chest Pain Problem 11/13/2018 12:0 0:00 AM EDT - 05/18/2020 12:00:00 AM EST [facility] ([facility]) [id number] Chest pain Chest Pain Problem 11/13/2018 12:0 0:00 AM EDT - 05/18/2020 12:00:00 AM EST [place] ([facility]) [id number] Chest pain Chest Pain Problem 11/13/2018 12:0 0:00 AM EDT - 05/18/2020 12:00:00 AM EST [facility] ([facility]) [id number] Dental caries on smooth surface penetrat ing into pulp Dental Caries on Smooth Surface Penetrating into Pulp Problem 016 12:00:00 AM EST - 05/18/2020 12:00:00 AM EST [facility] ([facility]) [id number] Dental caries on smooth surface penetrat ing into pulp Dental Caries on Smooth Surface Penetrating into Pulp Problem 016 12:00:00 AM EST - 05/18/2020 12:00:00 AM EST [place] ([facility]) [id number] Dental caries on smooth surface penetrat ing into pulp Dental Caries on Smooth Surface Penetrating into Pulp Problem 016 12:00:00 AM EST - 05/18/2020 12:00:00 AM EST [place] ([facility]) [id number] Dental caries on smooth surface penetrat ing into pulp Dental Caries on Smooth Surface Penetrating into Pulp Problem 016 12:00:00 AM EST - 05/18/2020 12:00:00 AM EST [place] ([facility]) Surgeries/Procedures Procedure Description Date Indications Data Source(s) OFFICE OUTPATIENT VISIT 25 MINUTES 02/28/2021 12:00:00 AM EDT [facility] ([facility]) MRI Lower Extremity Any Joint 02/09/2020 12:00:00 AM E DT [facility] ([facility] ) Therapeutic, Prophylactic Or Diagnostic Injection Subq/Im 01/20/2020 12:00:00 AM EDT [facility] ([facility]) Results ID Date Data Source [id number] 02/28/2021 12:31:00 PM EDT [facility] Name Value Range Interpretation Code Description Data Thuy rce(s) Supporting Document(s) SARS-CoV-2 (COVID 19) NEGATIVE - SARS-CoV-2 (COVID19) [facility] This lab was ordered by [facility] a nd reported by [facility]. ID Date Data Source [id number] 02/28/2021 12:31:00 PM EDT [facility] ([facility]) Name Value Range Interpretation Code Description Data Thuy rce(s) Supporting Document(s) Respiratory Panel Laboratory test result [facility] ([facility]) This respiratory PCR panel detects Influ pham A H1, H3 and 2009 H1 viruses, Influenza B virus, Resp iratory Syncytial Virus, Human metapneumovirus, Parainfluenza virus 1, 2, 3 and 4, Adenovirus, Rhinovirus/Enterovirus, Coronavirus HKU1, NL63, OC43, 229E and SARS-CoV-2 (COVID 19), Bordetella pertussis, Bordetella parapertussis, Mycoplasma pneumoniae and Chlamydia pneumoniae. NEGATIVE by MULTIPLEXED NUCLEIC ACID PCR SARS-CoV-2 (COVID 19) NEGATIVE - SARS-CoV-2 (COVID19) ID Date Data Source [id number] 02/28/2021 12:00:00 AM EDT [facility] Name Value Range Interpretation Code Description Data Thuy rce(s) Supporting Document(s) SARS-CoV2 Rapid Antigen Negative [facility] This lab was reported by [facility]. ID Date Data Source [id number] 06/20/2020 12:00:00 AM EST [facility] Name Value Range Interpretation Code Description Data Thuy rce(s) Supporting Document(s) SARS coronavirus 2 Ag Negative [facility] This lab was ordered by [facility] and reported by [facility]. ID Date Data Source [id number] 03/14/2020 04:52:08 PM EDT [facility] Current Problems: Bipolar disorder (ICD- 296.80) (KKG93-S25.9)Acute upper respiratory infection, unspecified (YUR09-C78.9)Bipolar disorder, unspecified (YEB44-L21.9)Chest pain, unspecified (NCJ66-N44.9)DENTAL CARIES EXTENDING INTO PULP (ICD-521.03) (JLT63-N46.63)ANXIETY DISORDER NOS (ICD-300.00) (ICD10- F41.9)ANXIETY DISORDER NOS (ICD-300.00) (MRW38-K62.9)ADJUSTMENT DISORDER WITH ANXIETY (ICD-309.24) (ACK37-W55.22)Current Medications: LAMICTAL 25 MG ORAL TABLET (LAMOTRIGINE) One BID; Route: ORALNEURONTIN 600 MG ORAL TABLET (GABAPENTIN) One BID; Route: ORALCurrent Allergies: PENICILLIN (Critical) Dental Chart: Procedures:Type - CDT Code - Description B - (D0600) Panoramic film (Performed by Elisa Gatica DMD) B - (D0140) Limited oral evaluation - problem focused on Tooth # 3 (Performed by Elisa Gatica DMD) Existing:Type - CDT Code - Description[E] Missing - [place] Only/Root Tip On #29 Surface O Region X, #3 Surface O Region X[E] Root Canal On #10 Region A, #11 Region A, #4 Region A, #6 Region A, #7 Region A, #8 Region A, #9 Region A[E] Missing - [place] and Root On #1 Surface O Region XR, #14 Surface O Region XR, #16 Surface O Region XR, #17 Surface O Region XR, #18 Surface O Region XR, #32 Surface O Region XR[E] [place] - 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 On #10, #11, #6, #7, #8, #9 Chart Alert:[employer] [facility] [employer] patientProphy 1 per 6 month periodchild through age 12adult 13+next availExam 1 per 6 month periodnext availFl2 1 per 6 month periodthrough age 20next availBwx 4 films per 6 month periodnext availPanorex 1 every 3 yearsnext avail Sealants every 5 yearsage 5-15 Chart Notes:mona (Mar 16 2020 10:53AM): Additional PPE requirements due to COVID-19 in the dental setting, N95, surgical mask, hair covering, gown and shield.S: CC:"I went to [facility] nd had a lot of work done, but I still have a lot of bad teeth and infection in my uth. It has been about a year since I seen [facility]. I went to [facility] yesterday for tooth pain and they gave me Trama dol and Clindamycin and they scheduled me to come and see you all for an nemergency visit."O: RMHx (-) per pt. is allergic to Penicillin and takes Gabepentin. HPI: week PL: 10.BP: 123/88. Panorex taken. Multiple areas of chronic infection present in the mouth. Multiple areas of decay and broken teeth. A: DDS recommends to be referred out for established dental home and treatment. Placed referral for multiservice tx. 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 (Pt asked for [facility])Informed Pt about new pain management policy of the clinic regarding about narcotic,told pt to alternate Ibuprophen 600- 800mg and tylenol 500mg every 4 to 6 hrs for pain when needed. Assisted By:Elisa Maki DMD by mona (03/16/2020 10:53 AM): Tooth Notes and Watches: Assessment & Plan Medications:LAMICTAL 25 MG ORAL TABLETNEURONTIN 600 MG ORAL TABLETAllergies:PENICILLIN (Critical)Orders:Multi-Service Referral [CPT-59129] Name Value Range Interpretation Code Description Data Tuhy rce(s) Supporting Document(s) Procedure Social History No Information Vital Signs ID Date Data Source UNK Name Value Range Interpretation Code Description Data Source(s) Systolic blood pressure 135 mm[Hg] 135 mm[Hg] M EDENT ([facility], [facility]) Body temperature 98.0 [degF] 98.0 [degF] MEDENT ([facility], [facility]) Body weight 165.00 [lb_av] 165.00 [lb_av] MEDEN T ([facility], [facility]) Body height 72 [in_i] 72 [in_i] MEDENT ([facility], [facility]) 6'0" Body mass index (BMI) [Ratio] 22.4 kg/m2 22.4 k g/m2 MEDENT ([facility], [facility]) Heart rate 70 /min 70 /min MEDENT ([facility], [facility]) Diastolic blood pressure 74 mm[Hg] 74 mm[Hg] MEDENT ([facility], [facility]) Respiratory rate 18 /min 18 /min MEDENT ( [facility], [facility]) Oxygen saturation in Arterial blood by Pulse oximetry 99 % 99 % [facility] ([facility], [facility]) Body height 72 [in_i] 72 [in_i] PABLO ([facility]) Body mass index (BMI) [Ratio] 22.4 kg/m2 22.4 k g/m2 PABLO ([facility]) Body weight 2643.2 [oz_av] 2643.2 [oz_av] ATHEN A ([facility]) Body height 72 [in_i] 72 [in_i] PABLO ([facility]) Body mass index (BMI) [Ratio] 22.7 kg/m2 22.7 k g/m2 PABLO ([facility]) Body weight 2681.6 [oz_av] 2681.6 [oz_av] ATHEN A ([facility]) Body height 72 [in_i] 72 [in_i] PABLO ([facility]) Body mass index (BMI) [Ratio] 22.7 kg/m2 22.7 k g/m2 PABLO ([facility]) Body weight 2681.6 [oz_av] 2681.6 [oz_av] ATHEN A ([facility]) Body height 72 [in_i] 72 [in_i] PABLO ([facility]) Body mass index (BMI) [Ratio] 21.6 kg/m2 21.6 k g/m2 PABLO ([facility]) Body weight 2553.6 [oz_av] 2553.6 [oz_av] ATHEN A ([facility]) Body height 72 [in_i] 72 [in_i] PABLO ([facility]) Body mass index (BMI) [Ratio] 21.6 kg/m2 21.6 k g/m2 PABLO ([facility]) Body weight 2553.6 [oz_av] 2553.6 [oz_av] ATHEN A ([facility]) Body height 72 [in_i] 72 [in_i] PABLO ([facility]) Body mass index (BMI) [Ratio] 21.6 kg/m2 21.6 k g/m2 PABLO ([facility]) Body weight 2553.6 [oz_av] 2553.6 [oz_av] ATHEN A ([facility]) Body height 72 [in_i] 72 [in_i] PABLO ([facility]) Body height 72 [in_i] 72 [in_i] PABLO ([facility]) Body height 72 [in_i] 72 [in_i] PABLO ([facility]) Body height 72 [in_i] 72 [in_i] PABLO ([facility]) Body temperature 97.7 [degF] 97.7 [degF] MEDENT ([facility]) Body height 72 [in_i] 72 [in_i] PABLO ([facility]) Body mass index (BMI) [Ratio] 21.6 kg/m2 21.6 k g/m2 PABLO ([facility]) Body weight 2553.6 [oz_av] 2553.6 [oz_av] ATHEN A ([facility]) Body weight 2553.6 [oz_av] 2553.6 [oz_av] ATHEN A ([facility]) Body height 72 [in_i] 72 [in_i] PABLO ([facility]) Body mass index (BMI) [Ratio] 21.6 kg/m2 21.6 k g/m2 PABLO ([facility]) Body height 72 [in_i] 72 [in_i] PABLO ([facility]) Body mass index (BMI) [Ratio] 21.6 kg/m2 21.6 k g/m2 PABLO ([facility]) Body weight 2553.6 [oz_av] 2553.6 [oz_av] ATHEN A ([facility]) Body height 72 [in_i] 72 [in_i] PABLO ([facility]) Body mass index (BMI) [Ratio] 21.6 kg/m2 21.6 k g/m2 P[facility]LO ([facility]) Body weight 2553.6 [oz_av] 2553.6 [oz_av] ATHEN A ([facility]) Body height 72 [in_i] 72 [in_i] PABLO ([facility]) Body mass index (BMI) [Ratio] 21.6 kg/m2 21.6 k g/m2 PABLO ([facility]) Body weight 2553.6 [oz_av] 2553.6 [oz_av] ATHEN A ([facility]) Body height 72 [in_i] 72 [in_i] PABLO ([facility]) Body mass index (BMI) [Ratio] 21.8 kg/m2 21.8 k g/m2 PABLO ([facility]) Body weight 2566.4 [oz_av] 2566.4 [oz_av] ATHEN A ([facility]) Body height 72 [in_i] 72 [in_i] PABLO ([facility]) Body mass index (BMI) [Ratio] 21.8 kg/m2 21.8 k g/m2 PABLO ([facility]) Body weight 2566.4 [oz_av] 2566.4 [oz_av] ATHRANDY [place] ([facility]) Body height 72 [in_i] 72 [in_i] PABLO ([facility]) Body mass index (BMI) [Ratio] 21.8 kg/m2 21.8 k g/m2 PAB[facility] ([facility]) Body weight 2566.4 [oz_av] 2566.4 [oz_av] ATHRANDY [place] ([facility]) Body height 72 [in_i] 72 [in_i] PABLO ([facility]) Body mass index (BMI) [Ratio] 21.8 kg/m2 21.8 k g/m2 PABLO ([facility]) Body weight 2566.4 [oz_av] 2566.4 [oz_av] ATHRANDY [place] ([facility]) Body height 72 [in_i] 72 [in_i] PABLO ([facility]) Body mass index (BMI) [Ratio] 21.8 kg/m2 21.8 k g/m2 PABLO ([facility]) Body weight 2566.4 [oz_av] 2566.4 [oz_av] ATHRANDY [place] ([facility]) Body height 72 [in_i] 72 [in_i] PABLO ([facility]) Body mass index (BMI) [Ratio] 21.8 kg/m2 21.8 k g/m2 PABLO ([facility]) Body weight 2566.4 [oz_av] 2566.4 [oz_av] ATHRANDY [place] ([facility]) Body temperature 98.4 [degF] 98.4 [degF] MEDENT ([facility], [facility]) Systolic blood pressure 116 mm[Hg] 116 mm[Hg] M EDENT ([facility] Diastolic blood pressure 84 mm[Hg] 84 mm[Hg] MEDENT ([facility] Heart rate 100 /min 100 /min MEDENT ([facility] Respiratory rate 12 /min 12 /min MEDENT ( [facility]) Body weight 160.00 [lb_av] 160.00 [lb_av] MEDEN T ([facility]) Body height 72 [in_i] 72 [in_i] MEDENT ([facility]) 6'0" Oxygen saturation in Arterial blood by Pulse oximetry 98 % 98 % [facility] Body mass index (BMI) [Ratio] 21.7 kg/m2 21.7 k g/m2 [facility] Patient Treatment Plan of Care Planned Activity Planned Date Details Description Data Source (s) Risperidone 2 MG Oral Tablet [facility] ([facility]) Risperidone 0.25 MG Oral Tablet PABLO ([facility]) quetiapine 50 MG Oral Tablet [facility] ([facility]) quetiapine 25 MG Oral Tablet [facility] ([facility]) Prednisone 20 MG Oral Tablet [facility] ([facility]) [place] Carbonate 300 MG Oral Capsule PABLO ([facility]) Ketotifen 0.25 MG/ML Ophthalmic Solution P[facility]LO ([facility]) Ibuprofen 800 MG Oral Tablet [facility] ([facility]) Hydroxyzine Hydrochloride 25 MG Oral Tablet [facility] ([facility]) fluticasone propionate 50 mcg/actuation nasal spray,suspension [place] ([facility]) Doxycycline Monohydrate 100 MG Oral Capsule [facility] ([facility]) Clindamycin 300 MG Oral Capsule [place] ([facility]) chlorhexidine gluconate 1.2 MG/ML Mouthwash [facility]LO ([facility]) cetirizine hydrochloride 10 MG Oral Tablet [facility] ([facility]) Risperidone 2 MG Oral Tablet [facility] ([facility]) Risperidone 0.25 MG Oral Tablet [facility] ([facility]) quetiapine 50 MG Oral Tablet [facility] ([facility]) Prednisone 20 MG Oral Tablet [facility] ([facility]) [place] Carbonate 300 MG Oral Capsule [facility] ([facility]) cetirizine hydrochloride 10 MG Oral Tablet [facility] ([facility]) Risperidone 2 MG Oral Tablet [facility] ([facility]) Risperidone 0.25 MG Oral Tablet [facility] ([facility]) quetiapine 50 MG Oral Tablet [facility] ([facility]) Prednisone 20 MG Oral Tablet [facility] ([facility]) [place] Carbonate 300 MG Oral Capsule [facility]LO ([facility]) Ketotifen 0.25 MG/ML Ophthalmic Solution PABLO ([facility]) Ibuprofen 800 MG Oral Tablet [facility] ([facility]) Hydroxyzine Hydrochloride 25 MG Oral Tablet [facility] ([facility]) fluticasone propionate 50 mcg/actuation nasal spray,suspension [facility] ([facility]) Doxycycline Monohydrate 100 MG Oral Capsule [facility] ([facility]) chlorhexidine gluconate 1.2 MG/ML Mouthwash PABLO ([facility]) cetirizine hydrochloride 10 MG Oral Tablet [facility] ([facility]) Risperidone 2 MG Oral Tablet [facility] ([facility]) Risperidone 0.25 MG Oral Tablet [facility] ([facility]) quetiapine 50 MG Oral Tablet [facility] ([facility]) Prednisone 20 MG Oral Tablet [facility] ([facility]) [place] Carbonate 300 MG Oral Capsule P[facility]LO ([facility]) Ketotifen 0.25 MG/ML Ophthalmic Solution P[facility]LO ([facility]) Ibuprofen 800 MG Oral Tablet [facility] ([facility]) Hydroxyzine Hydrochloride 25 MG Oral Tablet [facility] ([facility]) fluticasone propionate 50 mcg/actuation nasal spray,suspension [facility] ([facility]) Doxycycline Monohydrate 100 MG Oral Capsule [facility] ([facility]) chlorhexidine gluconate 1.2 MG/ML Mouthwash PABLO ([facility]) cetirizine hydrochloride 10 MG Oral Tablet [facility] ([facility]) Risperidone 2 MG Oral Tablet [facility] ([facility]) Risperidone 0.25 MG Oral Tablet [facility] ([facility]) quetiapine 50 MG Oral Tablet [facility] ([facility]) Prednisone 20 MG Oral Tablet [facility] ([facility]) [place] Carbonate 300 MG Oral Capsule PABLO ([facility]) Ketotifen 0.25 MG/ML Ophthalmic Solution PABLO ([facility]) Ibuprofen 800 MG Oral Tablet [facility] ([facility]) Hydroxyzine Hydrochloride 25 MG Oral Tablet [facility] ([facility]) fluticasone propionate 50 mcg/actuation nasal spray,suspension [facility] ([facility]) Doxycycline Monohydrate 100 MG Oral Capsule [facility] ([facility]) chlorhexidine gluconate 1.2 MG/ML Mouthwash P[facility] ([facility]) cetirizine hydrochloride 10 MG Oral Tablet [facility] ([facility]) Risperidone 2 MG Oral Tablet [facility] ([facility]) Risperidone 0.25 MG Oral Tablet [facility] ([facility]) quetiapine 50 MG Oral Tablet [facility] ([facility]) Prednisone 20 MG Oral Tablet [facility] ([facility]) [place] Carbonate 300 MG Oral Capsule PABLO ([facility]) Ketotifen 0.25 MG/ML Ophthalmic Solution P[facility]LO ([facility]) Ibuprofen 800 MG Oral Tablet [facility] ([facility]) Hydroxyzine Hydrochloride 25 MG Oral Tablet [facility] ([facility]) fluticasone propionate 50 mcg/actuation nasal spray,suspension [facility] ([facility]) Doxycycline Monohydrate 100 MG Oral Capsule P[facility]LO ([facility]) chlorhexidine gluconate 1.2 MG/ML Mouthwash PABLO ([facility]) cetirizine hydrochloride 10 MG Oral Tablet P[facility]LO ([facility]) Ketotifen 0.25 MG/ML Ophthalmic Solution PABLO ([facility]) Ibuprofen 800 MG Oral Tablet [facility] ([facility]) Hydroxyzine Hydrochloride 25 MG Oral Tablet P[facility]LO ([facility]) fluticasone propionate 50 mcg/actuation nasal spray,suspension [facility] ([facility]) Doxycycline Monohydrate 100 MG Oral Capsule [facility]LO ([facility]) Clindamycin 300 MG Oral Capsule [facility]LO ([facility]) chlorhexidine gluconate 1.2 MG/ML Mouthwash PABLO ([facility])
--- NOTE | 2021-03-19 17:13 | REP ---
INDICATION: fall COMPARISON: 01/20/2020. TECHNIQUE: Five views right knee. FINDINGS: There is no evidence of acute fracture, dislocation, or intrinsic bone disease. IMPRESSION: No fracture or dislocation. <Electronically signed by Roberto Carlos Perez > 03/19/21 [id number]
[2021-03-19 20:19] VITALS: BP 134/81
--- OUTSIDE RECORDS SUMMARY | 2021-03-19 22:23 | CCD ---
Author Author [facility] Organization [facility] Address Unknown Phone Unavailable Care Team Providers Care Helicopter Engineer Name Role Phone Estelle Torres Unavailable Unavailable [...] ELSA PA Unavailable Unavailable Brian F Estelle RIM FIRE PRIMING TOOL SETTER-BC Unavailable Unavailable Brian F Estelle RIM FIRE PRIMING TOOL SETTER-BC Unavailable Unavailable Brian F Estelle RIM FIRE PRIMING TOOL SETTER-BC Unavailable Unavailable Torres F Estelle RIM FIRE PRIMING TOOL SETTER-BC Unavailable Unavailable Torres F Estelle RIM FIRE PRIMING TOOL SETTER-BC Unavailable Unavailable Torres F Estelle RIM FIRE PRIMING TOOL SETTER-BC Unavailable Unavailable Torres, F Estelle RIM FIRE PRIMING TOOL SETTER-BC Unavailable Unavailable Torres, F Estelle RIM FIRE PRIMING TOOL SETTER-BC Unavailable Unavailable Torres F Estelel RIM FIRE PRIMING TOOL SETTER-BC Unavailable Unavailable Torres F Estelle RIM FIRE PRIMING TOOL SETTER-BC Unavailable Unavailable Torres, F Estelle RIM FIRE PRIMING TOOL SETTER-BC Unavailable Unavailable Torres F Estelle RIM FIRE PRIMING TOOL SETTER-BC Unavailable Unavailable Luis Torres Estelle RIM FIRE PRIMING TOOL SETTER-BC Unavailable Unavailable Luis Torres RIM FIRE PRIMING TOOL SETTER-BC Unavailable Unavailable Luis Torres Estelle RIM FIRE PRIMING TOOL SETTER-BC Unavailable Unavailable Luis Torres Estelle RIM FIRE PRIMING TOOL SETTER-BC Unavailable Unavailable Luis Torres RIM FIRE PRIMING TOOL SETTER-BC Unavailable Unavailable Luis Torres Estelle RIM FIRE PRIMING TOOL SETTER-BC Unavailable Unavailable Luis Torres RIM FIRE PRIMING TOOL SETTER-BC Unavailable Unavailable Luis Torres RIM FIRE PRIMING TOOL SETTER-BC Unavailable Unavailable Luis Torres RIM FIRE PRIMING TOOL SETTER-BC Unavailable Unavailable Luis Torres RIM FIRE PRIMING TOOL SETTER-BC Unavailable Unavailable Luis Torres Estelle RIM FIRE PRIMING TOOL SETTER-BC Unavailable Unavailable Scordo, M [...] is protected by Article 27-F of the [facility] Public Health law. If you continue you may have access to information: Regarding HIV / AIDS; Provided by facilities licensed or operated by the [facility] Office of Mental Health; or Provided by the [facility] Office for People With Developmental Disabilities. If such information is present, then the following [facility] mandated warning applies: This information has been [...] law may result in a fine or mcfp sentence or both. A general authorization for [...] Booker ry 02/28/2021 09:45:00 AM EDT [facility] ([facility]) Darius Cobos MD: [address] [place] [address], Ph. Attender: Darius Cobos MD [facility] Medical 12/18/2020 12:00:00 AM EDT [facility]) Darius Cobos MD: [address] [place] [address], Ph. Attender: Darius Cobos MD [facility] Medical 11/13/2020 12:00:00 AM EDT [facility]) Darius Cobos MD: [address] [place] [address], Ph. Attender: Darius Cobos MD [facility] Medical 11/13/2020 12:00:00 AM EDT [facility]) Darius Cobos MD: [address] [place] [address], Ph. Attender: Darius Cobos MD [facility] Medical 05/22/2020 12:00:00 AM EST [place] ([facility]) Darius Cobos MD: [address] [place] [address], Ph. Attender: Darius Cobos MD [facility] Medical 05/22/2020 12:00:00 AM EST [place] ([facility]) Darius Cobos MD: [address], [place] [address], Ph. Attender: Darius Cobos MD [facility] Medical 05/22/2020 12:00:00 AM EST [facility] ([facility]) Roseann Green PA-C: [address], [place] [address], Ph. Attender: Roseann CÁRDENAS [facility] Medical 05/18/2020 12:00:00 AM EST [place] ([facility]) Roseann Green PA-C: [address], [facility] [place] [address], Ph. Attender: Roseann C[facility]DE[facility] Medical 05/18/2020 12:00:00 AM EST [facility] ([facility]) Roseann Green PA-C: [address], [facility] [address], Ph. Attender: Roseann C[facility]DE[facility] Medical 05/18/2020 12:00:00 AM EST [facility] ([facility]) Roseann Green PA-C: [address], [facility] [place] [address], Ph. Attender: Roseann C[facility]RDENAS [facility] Medical 05/18/2020 12:00:00 AM EST [facility] ([facility]) Outpatient Attender: Nile Torres MD Physical Therapy 05/05/2020 0 2:15:00 PM EST [facility] ([facility] ) Darius Cobos MD: [address], [place] [address], Ph. Attender: Darius Cobos MD [facility] Medical 05/04/2020 12:00:00 AM EST [facility] ([facility]) Darius Cobos MD: [address], [place] [address], Ph. Attender: Darius Cobos MD [facility] Medical 05/04/2020 12:00:00 AM EST [place] ([facility]) Darius Cobos MD: [address], [facility] [place] [address], Ph. Attender: Darius Cobos MD [facility] Medical 05/04/2020 12:00:00 AM EST [facility] ([facility]) Darius Cobos MD: [address], [place] [address], Ph. Attender: Darius Cobos MD [facility] Medical 05/04/2020 12:00:00 AM EST [facility] ([facility]) Darius Cobos MD: [address], [place] [address], Ph. Attender: Darius Cobos MD [facility] Medical 05/04/2020 12:00:00 AM EST [facility] ([facility]) Darius Cobos MD: [address], [place] [address], Ph. Attender: Darius Cobos MD [facility] Medical 04/17/2020 12:00:00 AM EST [facility] ([facility]) Darius Cobos MD: [address], [place] [address], Ph. Attender: Darius Cobos MD [facility] Medical 04/17/2020 12:00:00 AM EST [facility] ([facility]) Darius Cobos MD: [address], [place] [address], Ph. Attender: Darius Cobos MD [facility] Medical 04/17/2020 12:00:00 AM EST [facility] ([facility]) Darius Cobos MD: [address], [place] [address], Ph. Attender: Darius Cobos MD [facility] Medical 04/17/2020 12:00:00 AM EST [facility] ([facility]) Darius Cobos MD: [address], [place] [address], Ph. Attender: Darius Cobos MD [facility] Medical 04/17/2020 12:00:00 AM EST [facility] ([facility]) Darius Cobos MD: [address], [place] [address], Ph. Attender: Darius Cobos MD [facility] Medical 04/17/2020 12:00:00 AM EST [facility] ([facility]) Outpatient Attender: Nile Torres MD Physical Therapy 03/24/2020 0 1:00:00 PM EDT [place] ([facility]) Outpatient Attender: Estelle GUTIERRES-PRESLEY FP 03/16/2020 10: 54:00 AM EDT [facility] Outpatient Attender: Estelle STEINBERG FP 03/16/2020 10: 54:00 AM EDT [facility] Outpatient Attender: Estelle STEINBERG FP 03/16/2020 10: 54:00 AM EDT [facility] Outpatient Attender: NENITA GUTIERRES FP 03/14/2020 11:33:07 AM EDT [facility] Outpatient Attender: Estelle GUTIERRES-BC FP 03/13/2020 03: 00:05 PM EDT [facility] Outpatient Attender: Estellemagalys GUTIERRES-BC 03/06/2020 01: 09:01 PM EDT [facility] Outpatient Attender: Estelle OSBORNEBC 02/17/2020 08: 34:20 AM EDT [facility] Outpatient Attender: NENITA GUTIERRES 02/14/2020 07:59:00 AM EDT [facility] Outpatient Attender: Nile Torres MD Physical Therapy 02/11/2020 0 2:30:00 PM EDT [facility] ([facility]) OFFICE OUTPATIENT NEW 30 MINUTES Attender: Nile Torres MD Physic al Therapy 01/27/2020 12:45:00 PM EDT [facility] ([facility]) Outpatient Attender: SHEMAR arroyo 01/20/2020 03:50:00 PM EDT [facility] ([facility]) Medications Medication Brand [...] 01/12/2020 12:00:00 AM EDT ORAL completed [facility] ([facility]) chlorhexidine gluconate 1.2 MG/ML Mouthwash Chlorhexidine Gl uconate 01/12/2020 12:00:00 AM EDT completed [facility] ([facility]) Clindamycin 300 MG Oral Capsule Clindamycin HCL 01/12/2020 12:00:00 A M EDT completed [facility] ([facility]) 25 mg 12/28/2019 12:00:00 AM EDT tablet 60 TAKE ONE TABLET BY MOUTH TWICE A DAY TAKE ONE TABLET BY MOUTH TWICE A DAY SOLD: 02/01/2020 [facility] Ketotifen 0.25 MG/ML Ophthalmic Solution ketotifen 0.0 25 % (0.035 %) eye drops ketotifen 0.025 % (0.035 %) eye drops completed ketotifen 0.25 MG/ML Ophthalmic Solution [place] ([facility]) [place] Carbonate 300 MG Oral Capsule li thium carbonate 300 mg capsule TAKE 1 CAPSULE BY MOUTH TWO TIMES A DAY lithium carbonate 300 mg capsule TAKE 1 CAPSULE BY MOUTH TWO TIMES A DAY completed lithium carbonate 300 MG Oral Capsule [place] ([facility]) Risperidone 2 MG Oral Tablet risperidone 2 mg tablet TAKE ONE TABLET BY MOUTH EVERY DAY risperidone 2 mg tablet TAKE ONE TABLET BY MOUTH EVERY DAY completed risperidone 2 MG Oral Tablet [place] ([facility]) Doxycycline Monohydrate 100 MG Oral Caps ule doxycycline monohydrate 100 mg capsule doxycycline monohydrate 100 mg capsule completed doxycycline monohydrate 100 MG Oral Capsule [facility] ([facility]) [place] Carbonate 300 MG Oral Capsule li thium carbonate 300 mg capsule TAKE 1 CAPSULE BY MOUTH TWO TIMES A DAY lithium carbonate 300 mg capsule TAKE 1 CAPSULE BY MOUTH TWO TIMES A DAY completed lithium carbonate 300 MG Oral Capsule [facility] ([facility]) Doxycycline Monohydrate 100 MG Oral Caps ule doxycycline monohydrate 100 mg capsule doxycycline monohydrate 100 mg capsule completed doxycycline monohydrate 100 MG Oral Capsule [facility] ([facility]) chlorhexidine gluconate 1.2 MG/ML Mouthw [place] chlorhexidine gluconate 0.12 % mouthwash chlorhexidine gluconate 0.12 % mouthwash completed chlorhexidine gluconate 1.2 MG/ML Mouthwash [facility] ([facility]) Doxycycline Monohydrate 100 MG Oral Caps ule doxycycline monohydrate 100 mg capsule doxycycline monohydrate 100 mg capsule completed doxycycline monohydrate 100 MG Oral Capsule [facility] ([facility]) chlorhexidine gluconate 1.2 MG/ML Mouthw [place] chlorhexidine gluconate 0.12 % mouthwash chlorhexidine gluconate 0.12 % mouthwash completed chlorhexidine gluconate 1.2 MG/ML Mouthwash [facility]) Risperidone 2 MG Oral Tablet risperidone 2 mg tablet TAKE ONE TABLET BY MOUTH EVERY DAY risperidone 2 mg tablet TAKE ONE TABLET BY MOUTH EVERY DAY completed risperidone 2 MG Oral Tablet [place] ([facility]) fluticasone propionate 50 mcg/actuation nasal spray,suspension [id number] completed fluticasone propionate 0.05 MG/ACTUAT Metered Dose Nasal [place] [facility]) chlorhexidine gluconate 1.2 MG/ML Mouthw [place] chlorhexidine gluconate 0.12 % mouthwash chlorhexidine gluconate 0.12 % mouthwash completed chlorhexidine gluconate 1.2 MG/ML Mouthwash [facility]) Risperidone 0.25 MG Oral Tablet risperid one 0.25 mg tablet TAKE 1 TABLET BY MOUTH DAILY WITH 2MG TABLET FOR TOTAL DAILY DOSE OF 2.25MG risperidone 0.25 mg tablet TAKE 1 TABLET BY MOUTH DAILY WITH 2MG TABLET FOR TOTAL DAILY DOSE OF 2.25MG completed risperidone 0.2 5 MG Oral Tablet [facility]) fluticasone propionate 50 mcg/actuation nasal spray,suspension [id number] completed fluticasone propionate 0.05 MG/ACTUAT Metered Dose Nasal [place] ([facility]) Risperidone 2 MG Oral Tablet risperidone 2 mg tablet TAKE ONE TABLET BY MOUTH EVERY DAY risperidone 2 mg tablet TAKE ONE TABLET BY MOUTH EVERY DAY completed risperidone 2 MG Oral Tablet [facility]) Hydroxyzine Hydrochloride 25 MG Oral Tab let hydroxyzine HCl 25 mg tablet TAKE ONE TABLET BY MOUTH EVERY DAY hydroxyzine HCl 25 mg tablet TAKE ONE TA BLET BY MOUTH EVERY DAY completed hydroxyzine hydrochloride 25 MG Oral Tablet [facility]) quetiapine 25 MG Oral Tablet quetiapine 25 mg tablet quetiapine 25 mg tablet completed quetiapine 25 MG Oral Tablet [facility]) quetiapine 50 MG Oral Tablet quetiapine 50 mg tablet quetiapine 50 mg tablet completed quetiapine 50 MG Oral Tablet [facility]) Hydroxyzine Hydrochloride 25 MG Oral Tab let hydroxyzine HCl 25 mg tablet TAKE ONE TABLET BY MOUTH EVERY DAY hydroxyzine HCl 25 mg tablet TAKE ONE TA BLET BY MOUTH EVERY DAY completed hydroxyzine hydrochloride 25 MG Oral Tablet [place] ([facility]) Risperidone 2 MG Oral Tablet risperidone 2 mg tablet TAKE ONE TABLET BY MOUTH EVERY DAY risperidone 2 mg tablet TAKE ONE TABLET BY MOUTH EVERY DAY completed risperidone 2 MG Oral Tablet [place] ([facility]) Clindamycin 300 MG Oral Capsule clindamycin HCl 300 mg capsule clindamycin HCl 300 mg capsule completed clindam ycin 300 MG Oral Capsule [place] ([facility]) Risperidone 2 MG Oral Tablet risperidone 2 mg tablet TAKE ONE TABLET BY MOUTH EVERY DAY risperidone 2 mg tablet TAKE ONE TABLET BY MOUTH EVERY DAY completed risperidone 2 MG Oral Tablet [place] ([facility]) Hydroxyzine Hydrochloride 25 MG Oral Tab let hydroxyzine HCl 25 mg tablet TAKE ONE TABLET BY MOUTH EVERY DAY hydroxyzine HCl 25 mg tablet TAKE ONE TA BLET BY MOUTH EVERY DAY completed hydroxyzine hydrochloride 25 MG Oral Tablet [place] ([facility]) Ketotifen 0.25 MG/ML Ophthalmic Solution ketotifen 0.0 25 % (0.035 %) eye drops ketotifen 0.025 % (0.035 %) eye drops completed ketotifen 0.25 MG/ML Ophthalmic Solution [place] ([facility]) cetirizine hydrochloride 10 MG Oral Tabl et cetirizine 10 mg tablet TAKE 1 TABLET BY MOUTH EVERY NIGHT cetirizine 10 mg tablet TAKE 1 TABLET BY MOUTH EVERY N IGHT completed cetirizine hyd rochloride 10 MG Oral Tablet [place] ([facility]) Ibuprofen 800 MG Oral Tablet ibuprofen 8 00 mg tablet TAKE ONE TABLET BY MOUTH THREE TIMES A DAY NEEDED FOR PAIN ibuprofen 800 mg tablet TAKE ONE TABLET BY MOUTH THREE TIMES A DAY NEEDED FOR PAIN completed ibuprofen 800 MG Oral Tablet [place] ([facility]) Risperidone 2 MG Oral Tablet risperidone 2 mg tablet TAKE ONE TABLET BY MOUTH EVERY DAY risperidone 2 mg tablet TAKE ONE TABLET BY MOUTH EVERY DAY completed risperidone 2 MG Oral Tablet [facility]) [place] Carbonate 300 MG Oral Capsule li thium carbonate 300 mg capsule TAKE 1 CAPSULE BY MOUTH TWO TIMES A DAY lithium carbonate 300 mg capsule TAKE 1 CAPSULE BY MOUTH TWO TIMES A DAY completed lithium carbonate 300 MG Oral Capsule [facility]) fluticasone propionate 50 mcg/actuation nasal spray,suspension [id number] completed fluticasone propionate 0.05 MG/ACTUAT Metered Dose Nasal [place] ([facility]) Risperidone 0.25 MG Oral Tablet risperid one 0.25 mg tablet TAKE 1 TABLET BY MOUTH DAILY WITH 2MG TABLET FOR TOTAL DAILY DOSE OF 2.25MG risperidone 0.25 mg tablet TAKE 1 TABLET BY MOUTH DAILY WITH 2MG TABLET FOR TOTAL DAILY DOSE OF 2.25MG completed risperidone 0.2 5 MG Oral Tablet [place] ([facility]) Hydroxyzine Hydrochloride 25 MG Oral Tab let hydroxyzine HCl 25 mg tablet TAKE ONE TABLET BY MOUTH EVERY DAY hydroxyzine HCl 25 mg tablet TAKE ONE TA BLET BY MOUTH EVERY DAY completed hydroxyzine hydrochloride 25 MG Oral Tablet [place] ([facility]) Prednisone 20 MG Oral Tablet prednisone 20 mg tablet TAKE TWO TABLETS BY MOUTH EVERY DAY ONCE DAILY FOR 4 DAYS prednisone 20 mg tablet TAKE TWO TABLETS BY MOUTH EVERY DAY ONCE DAILY FOR 4 DAYS completed prednisone 20 MG Oral Tablet [place] ([facility]) Ketotifen 0.25 MG/ML Ophthalmic Solution ketotifen 0.0 25 % (0.035 %) eye drops ketotifen 0.025 % (0.035 %) eye drops completed ketotifen 0.25 MG/ML Ophthalmic Solution [place] ([facility]) cetirizine hydrochloride 10 MG Oral Tabl et cetirizine 10 mg tablet TAKE 1 TABLET BY MOUTH EVERY NIGHT cetirizine 10 mg tablet TAKE 1 TABLET BY MOUTH EVERY N IGHT completed cetirizine hyd rochloride 10 MG Oral Tablet [place] ([facility]) [place] Carbonate 300 MG Oral Capsule li thium carbonate 300 mg capsule TAKE 1 CAPSULE BY MOUTH TWO TIMES A DAY lithium carbonate 300 mg capsule TAKE 1 CAPSULE BY MOUTH TWO TIMES A DAY completed lithium carbonate 300 MG Oral Capsule [place] ([facility]) Risperidone 0.25 MG Oral Tablet risperid one 0.25 mg tablet TAKE 1 TABLET BY MOUTH DAILY WITH 2MG TABLET FOR TOTAL DAILY DOSE OF 2.25MG risperidone 0.25 mg tablet TAKE 1 TABLET BY MOUTH DAILY WITH 2MG TABLET FOR TOTAL DAILY DOSE OF 2.25MG completed risperidone 0.2 5 MG Oral Tablet [place] ([facility]) Doxycycline Monohydrate 100 MG Oral Caps ule doxycycline monohydrate 100 mg capsule doxycycline monohydrate 100 mg capsule completed doxycycline monohydrate 100 MG Oral Capsule [place] ([facility]) Ibuprofen 800 MG Oral Tablet ibuprofen 8 00 mg tablet TAKE ONE TABLET BY MOUTH THREE TIMES A DAY NEEDED FOR PAIN ibuprofen 800 mg tablet TAKE ONE TABLET BY MOUTH THREE TIMES A DAY NEEDED FOR PAIN completed ibuprofen 800 MG Oral Tablet [place] ([facility]) Clindamycin 300 MG Oral Capsule clindamycin HCl 300 mg capsule clindamycin HCl 300 mg capsule completed clindam ycin 300 MG Oral Capsule [place] ([facility]) quetiapine 50 MG Oral Tablet quetiapine 50 mg tablet quetiapine 50 mg tablet completed quetiapine 50 MG Oral Tablet [place] ([facility]) Ketotifen 0.25 MG/ML Ophthalmic Solution ketotifen 0.0 25 % (0.035 %) eye drops ketotifen 0.025 % (0.035 %) eye drops completed ketotifen 0.25 MG/ML Ophthalmic Solution [place] ([facility]) cetirizine hydrochloride 10 MG Oral Tabl et cetirizine 10 mg tablet TAKE 1 TABLET BY MOUTH EVERY NIGHT cetirizine 10 mg tablet TAKE 1 TABLET BY MOUTH EVERY N IGHT completed cetirizine hyd rochloride 10 MG Oral Tablet [facility]) Prednisone 20 MG Oral Tablet prednisone 20 mg tablet TAKE TWO TABLETS BY MOUTH EVERY DAY ONCE DAILY FOR 4 DAYS prednisone 20 mg tablet TAKE TWO TABLETS BY MOUTH EVERY DAY ONCE DAILY FOR 4 DAYS completed prednisone 20 MG Oral Tablet [place] ([facility]) Ketotifen 0.25 MG/ML Ophthalmic Solution ketotifen 0.0 25 % (0.035 %) eye drops ketotifen 0.025 % (0.035 %) eye drops completed ketotifen 0.25 MG/ML Ophthalmic Solution [place] ([facility]) Risperidone 0.25 MG Oral Tablet risperid one 0.25 mg tablet TAKE 1 TABLET BY MOUTH DAILY WITH 2MG TABLET FOR TOTAL DAILY DOSE OF 2.25MG risperidone 0.25 mg tablet TAKE 1 TABLET BY MOUTH DAILY WITH 2MG TABLET FOR TOTAL DAILY DOSE OF 2.25MG completed risperidone 0.2 5 MG Oral Tablet [facility]) Ibuprofen 800 MG Oral Tablet ibuprofen 8 00 mg tablet TAKE ONE TABLET BY MOUTH THREE TIMES A DAY NEEDED FOR PAIN ibuprofen 800 mg tablet TAKE ONE TABLET BY MOUTH THREE TIMES A DAY NEEDED FOR PAIN completed ibuprofen 800 MG Oral Tablet [facility] ([facility]) Ibuprofen 800 MG Oral Tablet ibuprofen 8 00 mg tablet TAKE ONE TABLET BY MOUTH THREE TIMES A DAY NEEDED FOR PAIN ibuprofen 800 mg tablet TAKE ONE TABLET BY MOUTH THREE TIMES A DAY NEEDED FOR PAIN completed ibuprofen 800 MG Oral Tablet [facility] ([facility]) Risperidone 0.25 MG Oral Tablet risperid one 0.25 mg tablet TAKE 1 TABLET BY MOUTH DAILY WITH 2MG TABLET FOR TOTAL DAILY DOSE OF 2.25MG risperidone 0.25 mg tablet TAKE 1 TABLET BY MOUTH DAILY WITH 2MG TABLET FOR TOTAL DAILY DOSE OF 2.25MG completed risperidone 0.2 5 MG Oral Tablet [place] ([facility]) quetiapine 50 MG Oral Tablet quetiapine 50 mg tablet quetiapine 50 mg tablet completed quetiapine 50 MG Oral Tablet [place] ([facility]) Prednisone 20 MG Oral Tablet prednisone 20 mg tablet TAKE TWO TABLETS BY MOUTH EVERY DAY ONCE DAILY FOR 4 DAYS prednisone 20 mg tablet TAKE TWO TABLETS BY MOUTH EVERY DAY ONCE DAILY FOR 4 DAYS completed prednisone 20 MG Oral Tablet [facility] ([facility]) Prednisone 20 MG Oral Tablet prednisone 20 mg tablet TAKE TWO TABLETS BY MOUTH EVERY DAY ONCE DAILY FOR 4 DAYS prednisone 20 mg tablet TAKE TWO TABLETS BY MOUTH EVERY DAY ONCE DAILY FOR 4 DAYS completed prednisone 20 MG Oral Tablet [place] ([facility]) Doxycycline Monohydrate 100 MG Oral Caps ule doxycycline monohydrate 100 mg capsule doxycycline monohydrate 100 mg capsule completed doxycycline monohydrate 100 MG Oral Capsule [place] ([facility]) Ibuprofen 800 MG Oral Tablet ibuprofen 8 00 mg tablet TAKE ONE TABLET BY MOUTH THREE TIMES A DAY NEEDED FOR PAIN ibuprofen 800 mg tablet TAKE ONE TABLET BY MOUTH THREE TIMES A DAY NEEDED FOR PAIN completed ibuprofen 800 MG Oral Tablet [place] ([facility]) chlorhexidine gluconate 1.2 MG/ML Mouthw [place] chlorhexidine gluconate 0.12 % mouthwash chlorhexidine gluconate 0.12 % mouthwash completed chlorhexidine gluconate 1.2 MG/ML Mouthwash [place] ([facility]) fluticasone propionate 50 mcg/actuation nasal spray,suspension [id number] completed fluticasone propionate 0.05 MG/ACTUAT Metered Dose Nasal [place] ([facility]) Doxycycline Monohydrate 100 MG Oral Caps ule doxycycline monohydrate 100 mg capsule doxycycline monohydrate 100 mg capsule completed doxycycline monohydrate 100 MG Oral Capsule [place] ([facility]) Ibuprofen 800 MG Oral Tablet ibuprofen 8 00 mg tablet TAKE ONE TABLET BY MOUTH THREE TIMES A DAY NEEDED FOR PAIN ibuprofen 800 mg tablet TAKE ONE TABLET BY MOUTH THREE TIMES A DAY NEEDED FOR PAIN completed ibuprofen 800 MG Oral Tablet [place] ([facility]) cetirizine hydrochloride 10 MG Oral Tabl et cetirizine 10 mg tablet TAKE 1 TABLET BY MOUTH EVERY NIGHT cetirizine 10 mg tablet TAKE 1 TABLET BY MOUTH EVERY N IGHT completed cetirizine hyd rochloride 10 MG Oral Tablet [place] ([facility]) Ketotifen 0.25 MG/ML Ophthalmic Solution ketotifen 0.0 25 % (0.035 %) eye drops ketotifen 0.025 % (0.035 %) eye drops completed ketotifen 0.25 MG/ML Ophthalmic Solution [place] ([facility]) fluticasone propionate 50 mcg/actuation nasal spray,suspension [id number] completed fluticasone propionate 0.05 MG/ACTUAT Metered Dose Nasal [place] ([facility]) cetirizine hydrochloride 10 MG Oral Tabl et cetirizine 10 mg tablet TAKE 1 TABLET BY MOUTH EVERY NIGHT cetirizine 10 mg tablet TAKE 1 TABLET BY MOUTH EVERY N IGHT completed cetirizine hyd rochloride 10 MG Oral Tablet [place] ([facility]) fluticasone propionate 50 mcg/actuation nasal spray,suspension [id number] completed fluticasone propionate 0.05 MG/ACTUAT Metered Dose Nasal [place] ([facility]) chlorhexidine gluconate 1.2 MG/ML Mouthw [place] chlorhexidine gluconate 0.12 % mouthwash chlorhexidine gluconate 0.12 % mouthwash completed chlorhexidine gluconate 1.2 MG/ML Mouthwash [place] ([facility]) Hydroxyzine Hydrochloride 25 MG Oral Tab let hydroxyzine HCl 25 mg tablet TAKE ONE TABLET BY MOUTH EVERY DAY hydroxyzine HCl 25 mg tablet TAKE ONE TA BLET BY MOUTH EVERY DAY completed hydroxyzine hydrochloride 25 MG Oral Tablet [place] ([facility]) cetirizine hydrochloride 10 MG Oral Tabl et cetirizine 10 mg tablet TAKE 1 TABLET BY MOUTH EVERY NIGHT cetirizine 10 mg tablet TAKE 1 TABLET BY MOUTH EVERY N IGHT completed cetirizine hyd rochloride 10 MG Oral Tablet PABLO ([facility]) Hydroxyzine Hydrochloride 25 MG Oral Tab let hydroxyzine HCl 25 mg tablet TAKE ONE TABLET BY MOUTH EVERY DAY hydroxyzine HCl 25 mg tablet TAKE ONE TA BLET BY MOUTH EVERY DAY completed hydroxyzine hydrochloride 25 MG Oral Tablet P[facility] ([facility]) Risperidone 0.25 MG Oral Tablet risperid one 0.25 mg tablet TAKE 1 TABLET BY MOUTH DAILY WITH 2MG TABLET FOR TOTAL DAILY DOSE OF 2.25MG risperidone 0.25 mg tablet TAKE 1 TABLET BY MOUTH DAILY WITH 2MG TABLET FOR TOTAL DAILY DOSE OF 2.25MG completed risperidone 0.2 5 MG Oral Tablet [place] ([facility]) quetiapine 50 MG Oral Tablet quetiapine 50 mg tablet quetiapine 50 mg tablet completed quetiapine 50 MG Oral Tablet [facility] ([facility]) Prednisone 20 MG Oral Tablet prednisone 20 mg tablet TAKE TWO TABLETS BY MOUTH EVERY DAY ONCE DAILY FOR 4 DAYS prednisone 20 mg tablet TAKE TWO TABLETS BY MOUTH EVERY DAY ONCE DAILY FOR 4 DAYS completed prednisone 20 MG Oral Tablet [facility] ([facility]) chlorhexidine gluconate 1.2 MG/ML Mouthw [place] chlorhexidine gluconate 0.12 % mouthwash chlorhexidine gluconate 0.12 % mouthwash completed chlorhexidine gluconate 1.2 MG/ML Mouthwash [place] ([facility]) [place] Carbonate 300 MG Oral Capsule li thium carbonate 300 mg capsule TAKE 1 CAPSULE BY MOUTH TWO TIMES A DAY lithium carbonate 300 mg capsule TAKE 1 CAPSULE BY MOUTH TWO TIMES A DAY completed lithium carbonate 300 MG Oral Capsule P[facility]LO ([facility]) [place] Carbonate 300 MG Oral Capsule li thium carbonate 300 mg capsule TAKE 1 CAPSULE BY MOUTH TWO TIMES A DAY lithium carbonate 300 mg capsule TAKE 1 CAPSULE BY MOUTH TWO TIMES A DAY completed lithium carbonate 300 MG Oral Capsule P[facility] ([facility]) quetiapine 50 MG Oral Tablet quetiapine 50 mg tablet quetiapine 50 mg tablet completed quetiapine 50 MG Oral Tablet [facility] ([facility]) Prednisone 20 MG Oral Tablet prednisone 20 mg tablet TAKE TWO TABLETS BY MOUTH EVERY DAY ONCE DAILY FOR 4 DAYS prednisone 20 mg tablet TAKE TWO TABLETS BY MOUTH EVERY DAY ONCE DAILY FOR 4 DAYS completed prednisone 20 MG Oral Tablet [facility] ([facility]) quetiapine 50 MG Oral Tablet quetiapine 50 mg tablet quetiapine 50 mg tablet completed quetiapine 50 MG Oral Tablet [facility] ([facility]) Insurance Providers Payer name Policy type / Coverage type Policy ID Covered alliance party ID Covered alliance party's relationship to spivey Policy Spivey Plan Information [employer] Commercial [id number] Self [id number] [employer] Commercial [id number] Self [id number] [employer] Commercial [id number] Self BS/W/Id#Prefix/W ALL #'S Commercial [id number] Self [employer] Commercial [id number] Self [id number] [place] ([place]) Commercial [id number] Self [id number] Medicaid Dental S [id number] S [id number] [facility] Health Maintenance Organization (O) [id number] Self [id number] [facility] Health Maintenance Organization (O) [id number] Self [id number] [facility] Health Maintenance Organization (O) [id number] Self [id number] [facility] Health Maintenance Organization (O) [id number] Self Medicaid Dental O [id number] S [id number] Managed Care - Community Plan [facility] P [id number] S [id number] [place]/Community([facility]) Commercial [id number] Self [id number] Medicaid S [id number] S [id number] Managed Care - [facility] Community Plan P [id number] S [id number] Managed Care [facility] P [id number] S [id number] Medicaid S [id number] S [id number] Managed Care - [facility] Community Plan P [id number] S [id number] [id number] COMMUNITY PLAN MCDO [id number] SP [id number] [facility] O [id number] S [id number] Medicaid S [id number] S [id number] Managed Care - [facility] Community Plan P [id number] S [id number] Self Pay P [id number] S [id number] Managed Care [facility] P [id number] S [id number] Self Pay P UNAVAILABLE S UNAVAILA BLE Managed Care - Community Plan [facility] P [id number] S [id number] MEDICAID [id number] MEDICAID [id number] SP [id number] MEDICAID M [id number] S [id number] [facility] [place]) Medicaid [id number] Self [id number] SELF PAY ONLY [id number] SP [id number] Managed Care [facility] S [id number] S [id number] BLUE CROSS CARRO[place] PLAN [id number] SP [id number] [employer] BCBS P UNAVAILABLE [id number] S UNAV AILABLE HMO BLUE [id number] SP [id number] UN COMMUNITY PLAN MCDO [id number] SP [id number] Problems, Conditions, and Diagnoses Code Display Name Description Problem Type Effective Dates Data Source(s) [id number] Disorder of upper respiratory system Dis order of Upper Respiratory System Problem 02/24/2019 12:00:00 AM EDT - 05/18/2020 12:00:00 AM EST [facility] ([facility]) [id number] Disorder of upper respiratory system Dis order of Upper Respiratory System Problem 02/24/2019 12:00:00 AM EDT - 05/18/2020 12:00:00 AM EST [facility] ([facility]) [id number] Disorder of upper respiratory system Dis order of Upper Respiratory System Problem 02/24/2019 12:00:00 AM EDT - 05/18/2020 12:00:00 AM EST [facility] ([facility]) [id number] Disorder of upper respiratory system Dis order of Upper Respiratory System Problem 02/24/2019 12:00:00 AM EDT - 05/18/2020 12:00:00 AM EST [facility] ([facility]) [id number] Chest pain Chest Pain Problem 11/13/2018 12:0 0:00 AM EDT - 05/18/2020 12:00:00 AM EST [facility] ([facility]) [id number] Chest pain Chest Pain Problem 11/13/2018 12:0 0:00 AM EDT - 05/18/2020 12:00:00 AM EST [facility] ([facility]) [id number] Chest pain Chest Pain Problem 11/13/2018 12:0 0:00 AM EDT - 05/18/2020 12:00:00 AM EST [facility] ([facility]) [id number] Chest pain Chest Pain Problem 11/13/2018 12:0 0:00 AM EDT - 05/18/2020 12:00:00 AM EST [facility] ([facility]) [id number] Dental caries on smooth surface penetrat ing into pulp Dental Caries on Smooth Surface Penetrating into Pulp Problem 016 12:00:00 AM EST - 05/18/2020 12:00:00 AM EST [facility] ([facility]) [id number] Dental caries on smooth surface penetrat ing into pulp Dental Caries on Smooth Surface Penetrating into Pulp Problem 016 12:00:00 AM EST - 05/18/2020 12:00:00 AM EST [facility] ([facility]) [id number] Dental caries on smooth surface penetrat ing into pulp Dental Caries on Smooth Surface Penetrating into Pulp Problem 2 016 12:00:00 AM EST - 05/18/2020 12:00:00 AM EST [facility] ([facility]) [id number] Dental caries on smooth surface penetrat ing into pulp Dental Caries on Smooth Surface Penetrating into Pulp Problem 016 12:00:00 AM EST - 05/18/2020 12:00:00 AM EST [facility] ([facility]) Surgeries/Procedures Procedure Description Date Indications Data Source(s) OFFICE OUTPATIENT VISIT 25 MINUTES 02/28/2021 12:00:00 AM EDT [facility] ([facility]) MRI Lower Extremity Any Joint 02/09/2020 12:00:00 AM E DT [facility] ([facility] ) Therapeutic, Prophylactic Or Diagnostic Injection Subq/Im 01/20/2020 12:00:00 AM EDT [facility] ([facility]) Results ID Date Data Source [id number] 02/28/2021 12:31:00 PM EDT [facility] Name Value Range Interpretation Code Description Data Thuy rce(s) Supporting Document(s) SARS-CoV-2 (COVID 19) NEGATIVE - SARS-CoV-2 (COVID19) [facility] This lab was ordered by [facility] a nd reported by [facility]. ID Date Data Source [id number] 02/28/2021 12:31:00 PM EDT MED[facility] ([facility]) Name Value Range Interpretation Code Description Data Thuy rce(s) Supporting Document(s) Respiratory Panel Laboratory test result [facility] ([facility]) This respiratory PCR panel detects Influ pham [...] - SARS-CoV-2 (COVID19) ID Date Data Source [id number] 02/28/2021 12:00:00 AM EDT [facility] Name Value Range Interpretation Code Description Data Thuy rce(s) Supporting Document(s) SARS-CoV2 Rapid Antigen Negative [facility] This lab was reported by [facility]. ID Date Data Source [id number] 06/20/2020 12:00:00 AM EST [facility] Name Value Range Interpretation Code Description Data Thuy rce(s) Supporting Document(s) SARS coronavirus 2 Ag Negative [facility] This lab was ordered by [facility] and reported by [facility]. ID Date Data Source [id number] 03/14/2020 04:52:08 PM EDT [facility] Current Problems: Bipolar disorder (ICD- 296.80) (BVY39-B42.9)Acute upper respiratory infection, unspecified (GCC15-V19.9)Bipolar disorder, unspecified (DUR96-X88.9)Chest pain, unspecified (YWO46-B32.9)DENTAL CARIES EXTENDING INTO PULP (ICD-521.03) (OFJ14-T60.63)ANXIETY DISORDER NOS (ICD-300.00) (ICD10- F41.9)ANXIETY DISORDER NOS (ICD-300.00) (AEA07-W09.9)ADJUSTMENT DISORDER WITH ANXIETY (ICD-309.24) (GYV69-F87.22)Current Medications: LAMICTAL 25 MG ORAL TABLET (LAMOTRIGINE) One BID; Route: ORALNEURONTIN 600 MG ORAL TABLET (GABAPENTIN) One BID; Route: ORALCurrent Allergies: PENICILLIN (Critical) Dental Chart: Procedures:Type - CDT Code - Description B - (D0330) Panoramic film (Performed by Elisa Gatica DMD) B - (D0140) Limited oral evaluation - problem focused on Tooth # 3 (Performed by Elisa Gatica DMD) Existing:Type - CDT Code - Description[E] Missing - [place] Only/Root Tip On #29 Surface O Region X, #3 Surface O Region X[E] Root Canal On #10 Region A, #11 Region A, #4 Region A, #6 Region A, #7 Region A, #8 Region A, #9 Region A[E] Missing - [place] and Root On #1 Surface O Region XR, #14 Surface O Region XR, #16 Surface O Region XR, #17 Surface O Region XR, #18 Surface O Region XR, #32 Surface O Region XR[E] [place] - 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 nd had a lot of work done, but I still have a lot of bad teeth and infection in my uth. It has been about a year since I seen [place]. I went to [facility] yesterday for tooth pain and they [...] TABLETNEURONTIN 600 MG ORAL TABLETAllergies:PENICILLIN (Critical)Orders:Multi-Service Referral [CPT-35274] Name Value Range Interpretation Code Description Data Thuy rce(s) Supporting Document(s) Procedure Social History No Information Vital Signs ID Date Data Source UNK Name Value Range Interpretation Code Description Data Source(s) Systolic blood pressure 135 mm[Hg] 135 mm[Hg] M EDENT ([facility], [facility]) Body temperature 98.0 [degF] 98.0 [degF] [facility] ([facility], [facility]) Body weight 165.00 [lb_av] 165.00 [lb_av] MEDEN T ([facility], [facility]) Body height 72 [in_i] 72 [in_i] MEDENT ([facility], [facility]) 6'0" Body mass index (BMI) [Ratio] 22.4 kg/m2 22.4 k g/m2 MEDENT ([facility], [facility]) Heart rate 70 /min 70 /min MEDENT ([facility], [facility]) Diastolic blood pressure 74 mm[Hg] 74 mm[Hg] MEDENT ([facility], [facility]) Respiratory rate 18 /min 18 /min MED[facility] ( [facility], [facility]) Oxygen saturation in Arterial blood by Pulse oximetry 99 % 99 % [facility] ([facility], [facility]) Body height 72 [in_i] 72 [in_i] [facility] ([facility]) Body mass index (BMI) [Ratio] 22.4 kg/m2 22.4 k g/m2 [facility] ([facility]) Body weight 2643.2 [oz_av] 2643.2 [oz_av] ATHEN A ([facility]) Body height 72 [in_i] 72 [in_i] P[facility]LO ([facility]) Body mass index (BMI) [Ratio] 22.7 kg/m2 22.7 k g/m2 [facility] ([facility]) Body weight 2681.6 [oz_av] 2681.6 [oz_av] ATHRANDY A ([facility]) Body height 72 [in_i] 72 [in_i] P[facility]LO ([facility]) Body mass index (BMI) [Ratio] 22.7 kg/m2 22.7 k g/m2 [facility] ([facility]) Body weight 2681.6 [oz_av] 2681.6 [oz_av] ATHEN A ([facility]) Body height 72 [in_i] 72 [in_i] PABLO ([facility]) Body mass index (BMI) [Ratio] 21.6 kg/m2 21.6 k g/m2 [facility] ([facility]) Body weight 2553.6 [oz_av] 2553.6 [oz_av] ATHEN A ([facility]) Body height 72 [in_i] 72 [in_i] P[facility]LO ([facility]) Body mass index (BMI) [Ratio] 21.6 kg/m2 21.6 k g/m2 [facility] ([facility]) Body weight 2553.6 [oz_av] 2553.6 [oz_av] ATHEN A ([facility]) Body mass index (BMI) [Ratio] 21.6 kg/m2 21.6 k g/m2 P[facility]LO ([facility]) Body height 72 [in_i] 72 [in_i] PABLO ([facility]) Body weight 2553.6 [oz_av] 2553.6 [oz_av] ATHEN A ([facility]) Body height 72 [in_i] 72 [in_i] PABLO ([facility]) Body height 72 [in_i] 72 [in_i] PABLO ([facility]) Body height 72 [in_i] 72 [in_i] PABLO ([facility]) Body height 72 [in_i] 72 [in_i] PABLO ([facility]) Body temperature 97.7 [degF] 97.7 [degF] MEDENT ([facility]) Body height 72 [in_i] 72 [in_i] PABLO ([facility]) Body weight 2553.6 [oz_av] 2553.6 [oz_av] ATHRANDY A ([facility]) Body mass index (BMI) [Ratio] 21.6 kg/m2 21.6 k g/m2 [facility]LO ([facility]) Body height 72 [in_i] 72 [in_i] PABLO ([facility]) Body mass index (BMI) [Ratio] 21.6 kg/m2 21.6 k g/m2 P[facility]LO ([facility]) Body weight 2553.6 [oz_av] 2553.6 [oz_av] ATHEN A ([facility]) Body height 72 [in_i] 72 [in_i] PABLO ([facility]) Body mass index (BMI) [Ratio] 21.6 kg/m2 21.6 k g/m2 P[facility]LO ([facility]) Body weight 2553.6 [oz_av] 2553.6 [oz_av] ATHEN A ([facility]) Body height 72 [in_i] 72 [in_i] PABLO ([facility]) Body mass index (BMI) [Ratio] 21.6 kg/m2 21.6 k g/m2 PABLO ([facility]) Body weight 2553.6 [oz_av] 2553.6 [oz_av] ATHEN A ([facility]) Body height 72 [in_i] 72 [in_i] PABLO ([facility]) Body mass index (BMI) [Ratio] 21.6 kg/m2 21.6 k g/m2 PABLO ([facility]) Body weight 2553.6 [oz_av] 2553.6 [oz_av] ATHEN A ([facility]) Body height 72 [in_i] 72 [in_i] PABLO ([facility]) Body mass index (BMI) [Ratio] 21.8 kg/m2 21.8 k g/m2 P[facility] ([facility]) Body weight 2566.4 [oz_av] 2566.4 [oz_av] ATHEN A ([facility]) Body height 72 [in_i] 72 [in_i] PABLO ([facility]) Body height 72 [in_i] 72 [in_i] PABLO ([facility]) Body mass index (BMI) [Ratio] 21.8 kg/m2 21.8 k g/m2 P[facility]LO ([facility]) Body weight 2566.4 [oz_av] 2566.4 [oz_av] ATHRANDY A ([facility]) Body height 72 [in_i] 72 [in_i] PABLO ([facility]) Body mass index (BMI) [Ratio] 21.8 kg/m2 21.8 k g/m2 PABLO ([facility]) Body weight 2566.4 [oz_av] 2566.4 [oz_av] ATHEN A ([facility]) Body mass index (BMI) [Ratio] 21.8 kg/m2 21.8 k g/m2 P[facility]LO ([facility]) Body weight 2566.4 [oz_av] 2566.4 [oz_av] ATHEN A ([facility]) Body weight 2566.4 [oz_av] 2566.4 [oz_av] ATHEN A ([facility]) Body height 72 [in_i] 72 [in_i] PABLO ([facility]) Body mass index (BMI) [Ratio] 21.8 kg/m2 21.8 k g/m2 PABLO ([facility]) Body height 72 [in_i] 72 [in_i] PABLO ([facility]) Body mass index (BMI) [Ratio] 21.8 kg/m2 21.8 k g/m2 PABLO ([facility]) Body weight 2566.4 [oz_av] 2566.4 [oz_av] ATHEN A ([facility]) Body temperature 98.4 [degF] 98.4 [degF] MEDENT ([facility]) Body weight 160.00 [lb_av] 160.00 [lb_av] MEDEN T ([facility], [facility]) Body height 72 [in_i] 72 [in_i] MEDENT ([facility]) 6'0" Systolic blood pressure 116 mm[Hg] 116 mm[Hg] M RIA ([facility], [facility]) Diastolic blood pressure 84 mm[Hg] 84 mm[Hg] MEDENT ([facility], [facility]) Heart rate 100 /min 100 /min MEDENT ([facility], [facility]) Oxygen saturation in Arterial blood by Pulse oximetry 98 % 98 % [facility], [facility]) Body mass index (BMI) [Ratio] 21.7 kg/m2 21.7 k g/m2 MEDENT ([facility], [facility]) Respiratory rate 12 /min 12 /min MEDENT ( [facility], [facility]) Patient Treatment Plan of Care Planned Activity Planned Date Details Description Data Source (s) Risperidone 2 MG Oral Tablet PABLO ([facility]) Risperidone 0.25 MG Oral Tablet PABLO ([facility]) quetiapine 50 MG Oral Tablet PABLO ([facility]) quetiapine 25 MG Oral Tablet P[facility]LO ([facility]) Prednisone 20 MG Oral Tablet P[facility] ([facility]) [place] Carbonate 300 MG Oral Capsule PABLO ([facility]) Ketotifen 0.25 MG/ML Ophthalmic Solution PABLO ([facility]) Ibuprofen 800 MG Oral Tablet PABLO ([facility]) Hydroxyzine Hydrochloride 25 MG Oral Tablet PABLO ([facility]) fluticasone propionate 50 mcg/actuation nasal spray,suspension [place] ([facility]) Doxycycline Monohydrate 100 MG Oral Capsule PABLO ([facility]) Clindamycin 300 MG Oral Capsule [place] ([facility]) chlorhexidine gluconate 1.2 MG/ML Mouthwash PABLO ([facility]) cetirizine hydrochloride 10 MG Oral Tablet PABLO ([facility]) Risperidone 2 MG Oral Tablet PABLO ([facility]) Risperidone 0.25 MG Oral Tablet PABLO ([facility]) quetiapine 50 MG Oral Tablet P[facility]LO ([facility]) Prednisone 20 MG Oral Tablet PABLO ([facility]) [place] Carbonate 300 MG Oral Capsule PABLO ([facility]) cetirizine hydrochloride 10 MG Oral Tablet PABLO ([facility]) Risperidone 2 MG Oral Tablet PABLO ([facility]) Risperidone 0.25 MG Oral Tablet PABLO ([facility]) quetiapine 50 MG Oral Tablet P[facility]LO ([facility]) Prednisone 20 MG Oral Tablet PABLO ([facility]) [place] Carbonate 300 MG Oral Capsule PABLO ([facility]) Ketotifen 0.25 MG/ML Ophthalmic Solution PABLO ([facility]) Ibuprofen 800 MG Oral Tablet P[facility]LO ([facility]) Hydroxyzine Hydrochloride 25 MG Oral Tablet PABLO ([facility]) fluticasone propionate 50 mcg/actuation nasal spray,suspension PABLO ([facility]) Doxycycline Monohydrate 100 MG Oral Capsule PABLO ([facility]) chlorhexidine gluconate 1.2 MG/ML Mouthwash PABLO ([facility]) cetirizine hydrochloride 10 MG Oral Tablet PABLO ([facility]) Risperidone 2 MG Oral Tablet PABLO ([facility]) Risperidone 0.25 MG Oral Tablet PABLO ([facility]) quetiapine 50 MG Oral Tablet [facility]LO ([facility]) Prednisone 20 MG Oral Tablet PABLO ([facility]) [place] Carbonate 300 MG Oral Capsule PABLO ([facility]) Ketotifen 0.25 MG/ML Ophthalmic Solution PABLO ([facility]) Ibuprofen 800 MG Oral Tablet PABLO ([facility]) Hydroxyzine Hydrochloride 25 MG Oral Tablet PABLO ([facility]) fluticasone propionate 50 mcg/actuation nasal spray,suspension PABLO ([facility]) Doxycycline Monohydrate 100 MG Oral Capsule PABLO ([facility]) chlorhexidine gluconate 1.2 MG/ML Mouthwash PABLO ([facility]) cetirizine hydrochloride 10 MG Oral Tablet PABLO ([facility]) Risperidone 2 MG Oral Tablet PABLO ([facility]) Risperidone 0.25 MG Oral Tablet PABLO ([facility]) quetiapine 50 MG Oral Tablet PABLO ([facility]) Prednisone 20 MG Oral Tablet PABLO ([facility]) [place] Carbonate 300 MG Oral Capsule PABLO ([facility]) Ketotifen 0.25 MG/ML Ophthalmic Solution PABLO ([facility]) Ibuprofen 800 MG Oral Tablet PABLO ([facility]) Hydroxyzine Hydrochloride 25 MG Oral Tablet PABLO ([facility]) fluticasone propionate 50 mcg/actuation nasal spray,suspension PABLO ([facility]) Doxycycline Monohydrate 100 MG Oral Capsule PABLO ([facility]) chlorhexidine gluconate 1.2 MG/ML Mouthwash PABLO ([facility]) cetirizine hydrochloride 10 MG Oral Tablet PABLO ([facility]) Risperidone 2 MG Oral Tablet PABLO ([facility]) Risperidone 0.25 MG Oral Tablet PABLO ([facility]) quetiapine 50 MG Oral Tablet PABLO ([facility]) Prednisone 20 MG Oral Tablet PABLO ([facility]) [place] Carbonate 300 MG Oral Capsule PABLO ([facility]) Ketotifen 0.25 MG/ML Ophthalmic Solution PABLO ([facility]) Ibuprofen 800 MG Oral Tablet PABLO ([facility]) Hydroxyzine Hydrochloride 25 MG Oral Tablet PABLO ([facility]) fluticasone propionate 50 mcg/actuation nasal spray,suspension PABLO ([facility]) Doxycycline Monohydrate 100 MG Oral Capsule PABLO ([facility]) chlorhexidine gluconate 1.2 MG/ML Mouthwash PABLO ([facility]) cetirizine hydrochloride 10 MG Oral Tablet PABLO ([facility]) Ketotifen 0.25 MG/ML Ophthalmic Solution PABLO ([facility]) Ibuprofen 800 MG Oral Tablet PABLO ([facility]) Hydroxyzine Hydrochloride 25 MG Oral Tablet PABLO ([facility]) fluticasone propionate 50 mcg/actuation nasal spray,suspension PABLO ([facility]) Doxycycline Monohydrate 100 MG Oral Capsule PABLO ([facility]) Clindamycin 300 MG Oral Capsule PABLO ([facility]) chlorhexidine gluconate 1.2 MG/ML Mouthwash PABLO ([facility])
== END 2021-03-19 22:41 | disposition home or self-care (01) ==
LOC: M ED 16:18
DX: S83.91XA Sprain of unspecified site of right knee, initial encounter (principal); X50.1XXA Overexertion from prolonged static or awkward postures, initial encounter; Y92.89 Other specified places as the place of occurrence of the external cause; Y93.9 Activity, unspecified; Y99.0 Civilian activity done for income or pay; Z79.82 Long term (current) use of aspirin; Z79.899 Other long term (current) drug therapy; Z88.0 Allergy status to penicillin